=== PATIENT | male | born 1975 | race Caucasian/White ===

== ENCOUNTER 2016-08-19 09:52 | Outpatient (RCR) | payer MEDICAID ==
[~2016-08-19 09:52] MED LIST: ACET325T38 PO; CEFP200T2 PO; CYCL10TA45 PO; FLUT1DIS26 IH; INHALER; LEVO750T9 PO; METO-333 PO; NAPR220T66 PO; OXYC15TA79 PO; OXYC5CAP18 PO; PRD20T PO; RT-ALBUINH IH; SENN1TAB93 PO; SULF-222 PO; SULF1TAB35 PO; TIOT18CA2 IH; TRAM50TA2 PO
--- OUTSIDE RECORDS SUMMARY | 2016-08-19 09:55 | XMS REPORT | Continuity of Care Document ---
Author Author [facility] Organization [facility] Address Unknown Phone Unavailable Care Team Providers Care Door To Door Selling Agent Name Role Phone No Pcp, Na PCP Unavailable Source Comments Some departments are not documenting in the electronic medical record. If you do not see the information that you expected, contact Release of Information in the Health Information Management department at [phone] for further assistance in locating additional records.[facility] Active Allergies and Adverse Reactions No Known Allergies Current Medications Prescription Sig. Disp. Refills Start End Date Status Date albuterol (VENTOLIN HFA, Inhale 2 Puffs by mouth Active PROAIR HFA) 90 every 6 hours as needed mcg/actuation inhaler for Wheezing. fluticasone-vilanterol Inhale 1 Puff by mouth Active 200-25 mcg/dose dsdv daily. acetaminophen (TYLENOL) Take 1.5-3 Tabs by mouth 30 Tab 1 02/01/20 Active 325 mg tablet every 6 hours as needed. 16 senna/docusate Take 1 Tab by mouth twice 90 Tab 0 02/01/20 Active (SENOKOT-S) 8.6/50 mg daily. 16 tablet nicotine (NICODERM CQ Apply 1 Patch to top of 28 Patch 1 02/01/20 Active STEP 1) 21 mg/day patch skin as directed daily. 16 oxyCODONE (ROXICODONE) 5 Take 1-3 Tabs by mouth 75 Tab 0 02/24/20 Active mg tablet every 3 hours as needed 16 for Pain Earliest Fill Date: 02/24/16 metoprolol (LOPRESSOR) 25 Take 0.5 Tabs by mouth 30 Tab 3 02/24/20 Active mg tablet twice daily. 16 milk of magnesia (CONC) Take 10 mL by mouth daily 02/24/20 Active 2,400 mg/10 mL oral as needed (constipation). 16 suspension tiotropium (SPIRIVA) 18 Inhale 1 Cap by mouth 30 Cap 0 02/24/20 Active mcg capsule for inhaler daily. 16 fluticasone/salmeterol Inhale 1 Puff by mouth 3 Inhaler 0 02/24/20 Active (ADVAIR DISKUS) 250/50 twice daily. 16 mcg inhalation disk Active Problems Problem Noted Date Malignant thymoma ([facility]) 02/28/2016 Tobacco abuse 02/22/2016 Thymoma 02/01/2016 Mediastinal mass 01/24/2016 COPD (chronic obstructive pulmonary disease) ([facility]) Social History Tobacco Use Types Packs/Day Years Used Date Current Every Day Smoker Cigarettes 1.5 33 Last Filed Vital Signs Vital Sign Reading Time Taken Blood Pressure 132/75 02/24/2016 7:50 AM CDT Pulse 103 02/24/2016 9:50 AM CDT Temperature 37 C (98.6 F) 02/24/2016 7:50 AM CDT Respiratory Rate - - Height 1.854 m (6' 1") 02/20/2016 7:17 AM CDT Weight 99.8 kg (220 lb 0.3 oz) 02/24/2016 3:05 AM CDT Body Mass Index 29.03 02/24/2016 3:05 AM CDT Oxygen Saturation 94% 02/24/2016 9:50 AM CDT Plan of Care Health Maintenance Due Date Last Done Comments Physical (Comprehensive) 1980 Exam Pertussis Vaccine 1984 Tetanus Vaccine 1990 Influenza Vaccine 05/29/2016 Results from Last 3 Months Not on file
[2016-08-19 10:20] LABS: BASOPHILS % (AUTO) 0 % (0-10); EOSINOPHILS # (AUTO) 0.4 10^3/uL (0.0-0.3); EOSINOPHILS % (AUTO) 4 % (0-10); LYMPHOCYTES # (AUTO) 3.4 X 10^3 (1.0-4.0); LYMPHOCYTES % (AUTO) 33 % (12-44); MEAN CORPUSCULAR HEMOGLOBIN 30 PG (25-34); MEAN CORPUSCULAR HGB CONC 33 G/DL (32-36); MEAN CORPUSCULAR VOLUME 89 FL (80-99); MONOCYTES # (AUTO) 0.7 X 10^3 (0.0-1.0); MONOCYTES % (AUTO) 7 % (0-12); NEUTROPHILS # (AUTO) 5.7 X 10^3 (1.8-7.8); NEUTROPHILS % (AUTO) 56 % (42-75); PLATELET COUNT 101 10^3/uL (130-400); RED BLOOD COUNT 5.26 10^6/uL (4.35-5.85); RED CELL DISTRIBUTION WIDTH 13.6 % (10.0-14.5); WHITE BLOOD COUNT 10.2 10^3/uL (4.3-11.0)
[2016-08-19 10:45] LABS: ALANINE AMINOTRANSFERASE 70 U/L (0-55); ALBUMIN 4.1 G/DL (3.2-4.5); ANION GAP 9 MMOL/L (5-14); ASPARTATE AMINO TRANSFERASE 44 U/L (5-34); BILIRUBIN,TOTAL 0.3 MG/DL (0.1-1.0); BLOOD UREA NITROGEN 9 MG/DL (7-18); BUN/CREATININE RATIO 10; CALCIUM 9.2 MG/DL (8.5-10.1); CARBON DIOXIDE 25 MMOL/L (21-32); CHLORIDE 103 MMOL/L (98-107); CREATININE SERUM 0.92 MG/DL (0.60-1.30); GFR ESTIMATED > 60; GLUCOSE 162 MG/DL (70-105); LACTATE DEHYDROGENASE 204 U/L (125-220); POTASSIUM 3.7 MMOL/L (3.6-5.0); SODIUM 137 MMOL/L (135-145); TOTAL PROTEIN 6.6 G/DL (6.4-8.2)
== END 2016-11-17 | disposition home or self-care (01) ==
LOC: ONC 09:52
PROVIDERS: ATTEND Internal Medicine Hematology & Oncology
DX: C37 Malignant neoplasm of thymus (principal); J44.9 Chronic obstructive pulmonary disease, unspecified; F17.210 Nicotine dependence, cigarettes, uncomplicated
CPT/HCPCS: 36415; 80053; 83615; 85025; 99213

== ENCOUNTER 2016-11-17 13:13 | Outpatient (RCR) | payer MEDICAID ==
--- OUTSIDE RECORDS SUMMARY | 2016-11-17 13:21 | XMS REPORT | Continuity of Care Document ---
Author Author [facility] Organization [facility] Address Unknown Phone Unavailable Care Team Providers Care Finance Intern Name Role Phone No Pcp, Na PCP Unavailable Source Comments Some departments are not documenting in the electronic medical record. If you do not see the information that you expected, contact Release of Information in the Health Information Management department at [phone] for further assistance in locating additional records.[facility] Active Allergies and Adverse Reactions No Known [...] Active Problems Problem Noted Date Malignant thymoma ([facility]) 02/28/2016 Tobacco abuse 02/22/2016 Thymoma 02/01/2016 Mediastinal mass 01/24/2016 COPD (chronic obstructive pulmonary disease) ([facility]) Social History Tobacco Use Types Packs/Day Years [...]
[2016-11-17 14:11] LABS: BASOPHILS # (AUTO) 0.1 10^3/uL (0.0-0.1); BASOPHILS % (AUTO) 1 % (0-10); EOSINOPHILS # (AUTO) 0.2 10^3/uL (0.0-0.3); EOSINOPHILS % (AUTO) 2 % (0-10); LYMPHOCYTES # (AUTO) 3.2 X 10^3 (1.0-4.0); LYMPHOCYTES % (AUTO) 30 % (12-44); MEAN CORPUSCULAR HEMOGLOBIN 30 PG (25-34); MEAN CORPUSCULAR HGB CONC 33 G/DL (32-36); MEAN CORPUSCULAR VOLUME 89 FL (80-99); MONOCYTES # (AUTO) 0.8 X 10^3 (0.0-1.0); MONOCYTES % (AUTO) 8 % (0-12); NEUTROPHILS # (AUTO) 6.3 X 10^3 (1.8-7.8); NEUTROPHILS % (AUTO) 59 % (42-75); PLATELET COUNT 115 10^3/uL (130-400); RED BLOOD COUNT 5.46 10^6/uL (4.35-5.85); RED CELL DISTRIBUTION WIDTH 13.6 % (10.0-14.5); WHITE BLOOD COUNT 10.6 10^3/uL (4.3-11.0)
[2016-11-17 14:33] LABS: ALANINE AMINOTRANSFERASE 80 U/L (0-55); ALBUMIN 4.3 G/DL (3.2-4.5); ANION GAP 12 MMOL/L (5-14); ASPARTATE AMINO TRANSFERASE 49 U/L (5-34); BILIRUBIN,TOTAL 0.5 MG/DL (0.1-1.0); BLOOD UREA NITROGEN 8 MG/DL (7-18); BUN/CREATININE RATIO 9; CALCIUM 9.1 MG/DL (8.5-10.1); CARBON DIOXIDE 22 MMOL/L (21-32); CHLORIDE 102 MMOL/L (98-107); CREATININE SERUM 0.93 MG/DL (0.60-1.30); GFR ESTIMATED > 60; GLUCOSE 128 MG/DL (70-105); LACTATE DEHYDROGENASE 193 U/L (125-220); POTASSIUM 4.2 MMOL/L (3.6-5.0); SODIUM 136 MMOL/L (135-145); TOTAL PROTEIN 7.1 G/DL (6.4-8.2)
== END 2017-02-15 | disposition home or self-care (01) ==
LOC: ONC 13:13
PROVIDERS: ATTEND Internal Medicine Hematology & Oncology
DX: C37 Malignant neoplasm of thymus (principal); J44.9 Chronic obstructive pulmonary disease, unspecified; F17.210 Nicotine dependence, cigarettes, uncomplicated
CPT/HCPCS: 36415; 80053; 83615; 85025; 99213

== ENCOUNTER → 2017-02-10 | Outpatient (CLI) | payer MEDICAID ==
[~2017-02-10] MED LIST changes: +CATHETER FLUSH 10 ML SYR IV PRN; +IOHEXOL 350 MG/ML 100 ML (OMNIPAQUE 350) VIAL IV ONE; +NS 100 ML (IVPB) BAG IV ONE
--- NOTE | 2017-02-10 11:02 | Diagnostic Imaging Report ---
PROCEDURE: CT chest with contrast only. TECHNIQUE: Multiple contiguous axial images were obtained through the chest after administration of intravenous contrast. INDICATION: Shortness of breath. There are emphysematous changes in the lungs. There are no infiltrates, effusions, or pneumothoraces. There is no hilar or mediastinal lymphadenopathy. Thyroid appears normal. There is some coronary atherosclerosis. There is hepatic steatosis. IMPRESSION: Coronary atherosclerosis. Hepatic steatosis. Dictated by: Dictated on workstation # [id number]
== END ==
LOC: RAD 10:14
PROVIDERS: ATTEND Internal Medicine Hematology & Oncology
DX: I25.10 Atherosclerotic heart disease of native coronary artery without angina pectoris (principal); K76.0 Fatty (change of) liver, not elsewhere classified; R91.8 Other nonspecific abnormal finding of lung field
CPT/HCPCS: 71260

== ENCOUNTER 2017-02-16 12:43 | Outpatient (RCR) | payer MEDICAID ==
[~2017-02-16 12:43] MED LIST changes: -CATHETER FLUSH 10 ML SYR IV PRN; -IOHEXOL 350 MG/ML 100 ML (OMNIPAQUE 350) VIAL IV ONE; -NS 100 ML (IVPB) BAG IV ONE
[2017-02-16 13:30] LABS: BASOPHILS # (AUTO) 0.1 10^3/uL (0.0-0.1); BASOPHILS % (AUTO) 1 % (0-10); EOSINOPHILS # (AUTO) 0.3 10^3/uL (0.0-0.3); EOSINOPHILS % (AUTO) 3 % (0-10); LYMPHOCYTES # (AUTO) 2.8 X 10^3 (1.0-4.0); LYMPHOCYTES % (AUTO) 26 % (12-44); MEAN CORPUSCULAR HEMOGLOBIN 30 PG (25-34); MEAN CORPUSCULAR HGB CONC 32 G/DL (32-36); MEAN CORPUSCULAR VOLUME 91 FL (80-99); MONOCYTES # (AUTO) 0.7 X 10^3 (0.0-1.0); MONOCYTES % (AUTO) 6 % (0-12); NEUTROPHILS # (AUTO) 6.9 X 10^3 (1.8-7.8); NEUTROPHILS % (AUTO) 64 % (42-75); PLATELET COUNT 99 10^3/uL (130-400); RED BLOOD COUNT 5.52 10^6/uL (4.35-5.85); RED CELL DISTRIBUTION WIDTH 13.4 % (10.0-14.5); WHITE BLOOD COUNT 10.8 10^3/uL (4.3-11.0)
[2017-02-16 13:52] LABS: ALANINE AMINOTRANSFERASE 75 U/L (0-55); ALBUMIN 4.1 G/DL (3.2-4.5); ANION GAP 9 MMOL/L (5-14); ASPARTATE AMINO TRANSFERASE 45 U/L (5-34); BILIRUBIN,TOTAL 0.4 MG/DL (0.1-1.0); BLOOD UREA NITROGEN 10 MG/DL (7-18); BUN/CREATININE RATIO 10; CALCIUM 9.5 MG/DL (8.5-10.1); CARBON DIOXIDE 29 MMOL/L (21-32); CHLORIDE 100 MMOL/L (98-107); CREATININE SERUM 0.97 MG/DL (0.60-1.30); GFR ESTIMATED > 60; GLUCOSE 155 MG/DL (70-105); LACTATE DEHYDROGENASE 223 U/L (125-220); POTASSIUM 4.5 MMOL/L (3.6-5.0); SODIUM 138 MMOL/L (135-145)
[2017-08-18] MEDS ORDERED: ASPI-999 PO (07:27)
[2017-08-18] MEDS ORDERED: PANT40TA3 PO (07:27)
[2017-08-18] MEDS ORDERED: LISI10TA2 PO (07:27)
[2017-08-19] MEDS ORDERED: CLOP75TA28 PO (09:36)
[2017-08-19] MEDS ORDERED: METO-387 PO (09:36)
[2017-08-19] MEDS ORDERED: ATOR40TA PO (09:36)
[2017-08-19] MEDS ORDERED: METF-478 PO (09:59)
== END 2017-05-17 | disposition home or self-care (01) ==
LOC: ONC 12:43
PROVIDERS: ATTEND Internal Medicine Hematology & Oncology
DX: C37 Malignant neoplasm of thymus (principal); J44.9 Chronic obstructive pulmonary disease, unspecified; F17.210 Nicotine dependence, cigarettes, uncomplicated
CPT/HCPCS: 36415; 80053; 83615; 85025; 99213

== ENCOUNTER → 2017-04-10 | Outpatient (CLI) | payer MEDICAID ==
--- NOTE | 2017-04-10 09:05 | Diagnostic Imaging Report ---
PROCEDURE: US abdomen complete. TECHNIQUE: Multiple real-time grayscale images were obtained over the abdomen in various projections. INDICATION: Abdominal pain. FINDINGS: The pancreas is largely obscured by bowel gas. The liver is hyperechoic and attenuates the ultrasound beam suggestive of fatty infiltration or hepatitis. There is also enlargement of the liver with craniocaudal diagonal dimension of 20.1 cm. The CBD is obscured by colon gas. The spleen is 15.0 x 5.5 x 6.3 cm, borderline enlarged. The gallbladder demonstrates no stones or wall thickening. No pericholecystic fluid. Sonographic Carrasco sign is reportedly negative. The right kidney is some 11.3 cm, and the left kidney is 12.7 cm in length. No hydronephrosis or focal lesion. There is no fluid collection or ascites in the abdomen or pelvis. The IVC and abdominal aorta are obscured by bowel gas. IMPRESSION: 1. The liver is mildly enlarged with parenchymal echogenicity may relate to fatty infiltration or hepatitis. 2. Borderline splenomegaly. Dictated by: Dictated on workstation # [id number]
== END ==
LOC: RAD 07:47
PROVIDERS: ATTEND Nurse Practitioner Family
DX: R10.11 Right upper quadrant pain (principal)
CPT/HCPCS: 76700

== ENCOUNTER → 2017-07-15 | Outpatient (CLI) | payer MEDICAID ==
[~2017-07-15] MED LIST changes: +IOHEXOL 350 MG/ML 100 ML (OMNIPAQUE 350) VIAL IV ONE; +NS 100 ML (IVPB) BAG IV ONE
--- NOTE | 2017-07-15 10:01 | Diagnostic Imaging Report ---
PROCEDURE: CT abdomen and pelvis with and without contrast. TECHNIQUE: Precontrast acquisitions were acquired through the abdomen and pelvis. Multiple contiguous axial images were obtained through the abdomen and pelvis after the administration of intravenous contrast. INDICATION: Abdominal pain. 100 mL of Omnipaque 350 is administered intravenously. FINDINGS: The lung bases appear clear. The liver demonstrate diffuse hepatic steatosis. The spleen is not enlarged. The pancreas, the gallbladder, and the adrenal glands appear unremarkable. The kidneys have symmetric enhancement and excretion. There is no hydronephrosis. No urinary tract stones. The abdominal aorta is 2.9 cm in caliber. No para-aortic significantly enlarged lymph nodes are seen. There is no significant free fluid or fluid collection in the abdomen or pelvis. The appendix appears normal. No bowel obstruction. There is fluid-attenuation oval lesion in the subcutaneous tissues in the right buttocks area measuring 5.5 x 2.9 x 4.3 cm, presumably related to a sebaceous cyst. The osseous structures appear grossly unremarkable. IMPRESSION: 1. Diffuse marked degree of hepatic steatosis. 2. Infrarenal abdominal aortic aneurysm measuring 2.9 cm in caliber. Dictated by: Dictated on workstation # [id number]
== END ==
LOC: RAD 08:18
PROVIDERS: ATTEND Nurse Practitioner Family
DX: I71.4 Abdominal aortic aneurysm, without rupture (principal); K76.0 Fatty (change of) liver, not elsewhere classified
CPT/HCPCS: 74178

== ENCOUNTER → 2017-07-28 | Outpatient (CLI) | payer MEDICAID ==
[~2017-07-28] MED LIST changes: +CATHETER FLUSH 10 ML SYR IV PRN; -IOHEXOL 350 MG/ML 100 ML (OMNIPAQUE 350) VIAL IV ONE; -NS 100 ML (IVPB) BAG IV ONE; +REGADENOSON 0.4 MG/5 ML SYR (LEXISCAN) IV ONE
[2017-07-28 08:54] VITALS: BP 132/94
--- NOTE | 2017-07-29 03:08 | STRESS TEST ---
DATE OF SERVICE: 07/28/2017 RESTING AND POST REGADENOSON TECHNETIUM 99M TETROFOSMIN SPECT CT IMAGING ORDERING PHYSICIAN: Dr. Calhoun. PRIMARY PHYSICIAN: Dr. Yoder. OTHER PHYSICIAN: FANG Acevedo CLINICAL DIAGNOSIS: Chest discomfort. Baseline images were carried out after injection of 10.72 mCi of technetium-99 tetrofosmin. This was followed by 0.4 mg of regadenoson and 30.3 mCi of technetium-99 tetrofosmin for stress imaging. The electrocardiogram showed sinus rhythm and did not change significantly with the regadenoson infusion. The patient tolerated the procedure well. Review of images at rest and following stress indicates a [id number] inferolateral perfusion defect that is transient. Gated images show normal global left ventricular systolic function with normal regional wall motion. Left ventricular ejection fraction is calculated to be 77%. Left ventricular end diastolic volume is 49 mL. TID is absent (0.97). CONCLUSION: 1. The study is indicative of a [id number] amount of inferolateral ischemia. 2. No regional wall motion abnormalities. 3. Normal global left ventricular systolic function with a calculated ejection fraction of 77%. Job ID: [id number] DocumentID: [id number] Dictated Date: 07/28/2017 14:20:23 Kick Press Setter Date: 07/29/2017 00:24:22 Dictated By: ESTIVEN CALHOUN MD, MA, FACP, FACC,
== END ==
LOC: CARD 07:08
PROVIDERS: ATTEND Internal Medicine Cardiovascular Disease
DX: R07.89 Other chest pain (principal); R06.02 Shortness of breath; D15.0 Benign neoplasm of thymus; I71.4 Abdominal aortic aneurysm, without rupture; I73.9 Peripheral vascular disease, unspecified; E66.09 Other obesity due to excess calories; J43.8 Other emphysema; Z72.0 Tobacco use
CPT/HCPCS: 78452; 93017

== ENCOUNTER 2017-08-31 09:45 | Outpatient (RCR) | payer MEDICAID ==
[~2017-08-31 09:45] MED LIST changes: +ASPI-999 PO; +ATOR40TA PO; -CATHETER FLUSH 10 ML SYR IV PRN; +CLOP75TA28 PO; +LISI10TA2 PO; +METF-478 PO; +METO-387 PO; +PANT40TA3 PO; -REGADENOSON 0.4 MG/5 ML SYR (LEXISCAN) IV ONE
[2017-08-31 10:30] LABS: BASOPHILS # (AUTO) 0.1 10^3/uL (0.0-0.1); BASOPHILS % (AUTO) 1 % (0-10); EOSINOPHILS # (AUTO) 0.3 10^3/uL (0.0-0.3); EOSINOPHILS % (AUTO) 3 % (0-10); HEMATOCRIT 46 % (40-54); HEMOGLOBIN 15.6 G/DL (13.3-17.7); LYMPHOCYTES # (AUTO) 2.3 X 10^3 (1.0-4.0); LYMPHOCYTES % (AUTO) 23 % (12-44); MEAN CORPUSCULAR HEMOGLOBIN 30 PG (25-34); MEAN CORPUSCULAR HGB CONC 34 G/DL (32-36); MEAN CORPUSCULAR VOLUME 89 FL (80-99); MONOCYTES # (AUTO) 0.6 X 10^3 (0.0-1.0); MONOCYTES % (AUTO) 6 % (0-12); NEUTROPHILS # (AUTO) 6.9 X 10^3 (1.8-7.8); NEUTROPHILS % (AUTO) 68 % (42-75); PLATELET COUNT 134 10^3/uL (130-400); RED BLOOD COUNT 5.22 10^6/uL (4.35-5.85); RED CELL DISTRIBUTION WIDTH 12.7 % (10.0-14.5); WHITE BLOOD COUNT 10.1 10^3/uL (4.3-11.0)
[2017-08-31 10:47] LABS: ALANINE AMINOTRANSFERASE 80 U/L (0-55); ALBUMIN 4.2 GM/DL (3.2-4.5); ALKALINE PHOSPHATASE 125 U/L (40-136); BILIRUBIN,TOTAL 0.6 MG/DL (0.1-1.0); BUN/CREATININE RATIO 8; CALCIUM 9.3 MG/DL (8.5-10.1); CARBON DIOXIDE 25 MMOL/L (21-32); CHLORIDE 99 MMOL/L (98-107); CREATININE SERUM 0.89 MG/DL (0.60-1.30); GFR ESTIMATED > 60; GLUCOSE 226 MG/DL (70-105); POTASSIUM 4.3 MMOL/L (3.6-5.0); SODIUM 134 MMOL/L (135-145); TOTAL PROTEIN 7.5 GM/DL (6.4-8.2)
[2017-09-11] MEDS ORDERED: METF500T4 PO (14:22)
[2017-09-11] MEDS ORDERED: CLOP75TA28 PO (14:22)
[2017-09-11] MEDS ORDERED: ATOR40TA70 PO (14:22)
[2017-09-11] MEDS ORDERED: ASPI325T32 PO (14:22)
== END 2017-11-29 | disposition home or self-care (01) ==
LOC: ONC 09:45
PROVIDERS: ATTEND Internal Medicine Hematology & Oncology
DX: C37 Malignant neoplasm of thymus (principal); J44.9 Chronic obstructive pulmonary disease, unspecified; F17.210 Nicotine dependence, cigarettes, uncomplicated; I25.10 Atherosclerotic heart disease of native coronary artery without angina pectoris; K76.0 Fatty (change of) liver, not elsewhere classified; R91.8 Other nonspecific abnormal finding of lung field; Z79.899 Other long term (current) drug therapy
CPT/HCPCS: 36415; 80053; 83615; 85025; 99213

== ENCOUNTER 2017-09-11 14:00 | Outpatient (CLI) | payer MEDICAID ==
[~2017-09-11] VITALS: Ht 185.4 cm; Wt 107.0 kg
[2017-09-11] MEDS ORDERED: ATOR40TA70 PO (14:22)
[2017-09-11] MEDS ORDERED: METF500T4 PO (14:22)
[2017-09-11] MEDS ORDERED: ASPI325T32 PO (14:22)
[2017-09-11] MEDS ORDERED: CLOP75TA28 PO (14:22)
== END 2017-09-11 14:26 ==
LOC: PREOP 14:00
PROVIDERS: ATTEND Surgery
DX: Z01.818 Encounter for other preprocedural examination (principal); K62.5 Hemorrhage of anus and rectum

== ENCOUNTER → 2017-09-17 | Day surgery (SDC) | payer MEDICAID ==
[~2017-09-17] VITALS: Ht 185.4 cm; Wt 107.0 kg
[~2017-09-17] MED LIST changes: +ASPI325T32 PO; +ATOR40TA70 PO; +METF500T4 PO; +MIDAZOLAM 2 MG/2 ML (VERSED) VIAL ONE; +NS IV 500 ML 500 ML IV PRN; +NS IV 500 ML 500 ML ONE; +fentaNYL INJECTION 100 MCG/2 ML AMP ONE
[2017-09-17 08:37] VITALS: BP 105/82
[2017-09-17] MEDS: MIDAZOLAM 2 MG/2 ML (VERSED) VIAL IVP PRN ×4 (10:19→10:31)
[2017-09-17] MEDS: fentaNYL INJECTION 100 MCG/2 ML AMP IVP PRN ×2 (10:20→10:25)
--- NOTE | 2017-09-17 10:21 | Conscious Sedation/ASA ---
Conscious Sedation Pre-Proced Time Reviewed: 10:21 ASA Class: 2 Airway Mallampati Classification: ([place] appropriate class) I. II. III, IV Lungs Heart ASA score ASA 1: a normal healthy patient ASA 2: a patient with a mild systemic disease (mid diabetes, controlled hypertension, obesity ASA 3: a patient with a severe systemic disease that limits activity (angina , COPD, prior Myocardial infarction) ASA 4: a patient with an incapacitating disease that is a constant threat to life (CHF, renal failure) ASA 5: a moribund patient not expected to survive 24 hrs. (ruptured aneurysm) ASA 6: a declared brain patient whose organs are being harvested. For emergent operations, add the letter E after the classification Grade 2 Sedation Plan: Discussed options with patient/fam Note The patient is an appropriate candidate to undergo the planned procedure, sedation, and anesthesia. The patient immediately re-assessed prior to indication. ISAK HENDRIX MD Sep 17, 2017 10:21 am
[2017-09-17 10:30] VITALS: BP 122/89
--- OUTSIDE RECORDS SUMMARY | 2017-09-17 10:45 | XMS REPORT | Clinical Summary ---
Author Author [facility] Organization [facility] Address Unknown Phone Unavailable Care Team Providers Care Sales Ambassador Name Role Phone PCP Unavailable Source Comments Some departments are not documenting in the electronic medical record. If you do not see the information that you expected, contact Release of Information in the Health Information Management department at [phone] for further assistance in locating additional records.[facility] Allergies No Known Allergies Current Medications Prescription Sig. [...] Active Problems Problem Noted Date Malignant thymoma ([facility]) 02/28/2016 Tobacco abuse 02/22/2016 Thymoma 02/01/2016 Mediastinal mass 01/24/2016 COPD (chronic obstructive pulmonary disease) ([facility]) Family History Medical History Relation Name Comments Heart Disease Father Hypertension Father Heart Disease Maternal Grandfather Diabetes Mother Cancer Paternal Grandfather Hypertension Paternal Grandfather Cancer Paternal Grandmother Relation Name Status Comments Father Maternal Grandfather Mother Paternal Grandfather Paternal Grandmother Social History Tobacco Use Types Packs/Day Years Used Date Current Every Day Smoker Cigarettes 1.5 33 Sex Assigned at Date Recorded Not on file Last Filed Vital Signs Vital Sign Reading Time Taken Blood Pressure 132/75 02/24/2016 7:50 AM CDT Pulse 103 02/24/2016 9:50 AM CDT Temperature 37 C (98.6 F) 02/24/2016 7:50 AM CDT Respiratory Rate - - Oxygen Saturation 94% 02/24/2016 9:50 AM CDT Inhaled Oxygen - - Concentration Weight 99.8 kg (220 lb 0.3 oz) 02/24/2016 3:05 AM CDT Height 185.4 cm (6' 1") 02/20/2016 7:17 AM CDT Body Mass Index 29.03 02/24/2016 3:05 AM CDT Plan of Treatment Health Maintenance Due Date Last Done Comments PHYSICAL (COMPREHENSIVE) 1980 EXAM PERTUSSIS VACCINE 1984 TETANUS VACCINE 1990 INFLUENZA VACCINE 04/28/2017 Results Not on filefrom Last 3 Months
--- OUTSIDE RECORDS SUMMARY | 2017-09-17 10:47 | XMS REPORT | Continuity of Care Document ---
Author Author [facility] Organization [facility] Address Unknown Phone Unavailable Allergies Active Description Code Type Severity Reaction Onset Reported/Identified Relationship to Patient Clinical Status Yes No Known Drug Allergies [id number] Drug Allergy Unknown N/A 12/27/2013 Medications There is no data. Problems Date Dx Coded Attending Type Code Diagnosis Diagnosed By 12/27/2013 VALE RUIZ Ot 719.45 JOINT PAIN-PELVIS 12/27/2013 VALE RUIZ Ot 843.9 SPRAIN HIP THIGH NOS 12/27/2013 VALE RUIZ Ot E000.8 OTHER EXTERNAL CAUSE STATUS 12/27/2013 VALE RUIZ Ot E013.0 ACTIVITIES INVOLVING PERSONAL BATHING AN 12/27/2013 VALE RUIZ Ot E849.0 ACCIDENT IN HOME 12/27/2013 VALE RUIZ Ot E927.0 OVEREXERTION FROM SUDDEN STRENUOUS MOVEM 12/13/2015 CARLOS DAVENPORT MD Ot F12.10 CANNABIS ABUSE, UNCOMPLICATED 12/13/2015 CARLOS DAVENPORT MD Ot F17.210 NICOTINE DEPENDENCE, CIGARETTES, UNCOMPL 12/13/2015 CARLOS DAVENPORT MD Ot J40 BRONCHITIS, NOT SPECIFIED ACUTE OR CH 12/13/2015 CARLOS DAVENPORT MD Ot J43.9 EMPHYSEMA, UNSPECIFIED 12/13/2015 CARLOS DAVENPORT MD Ot K76.0 FATTY (CHANGE OF) LIVER, NOT ELSEWHERE C 12/13/2015 CARLOS DAVENPORT MD Ot R22.2 LOCALIZED SWELLING, MASS AND LUMP, TRUNK 12/14/2015 CARLOS DAVENPORT MD Ot F12.10 12/14/2015 CARLOS DAVENPORT MD Ot F17.210 12/14/2015 CARLOS DAVENPORT MD Ot J40 12/14/2015 CARLOS DAVENPORT MD, Ot J43.9 12/14/2015 CIRILO DAVENPORT MDOTHY D Ot K76.0 12/14/2015 ISSAC SHERIDAN, CARLOS D Ot R22.2 12/19/2015 ISSAC SHERIDAN, CARLOS D Ot F12.10 12/19/2015 ISSAC SHERIDAN, CARLOS D Ot F17.210 12/19/2015 ISSAC SHERIDAN, CARLOS D Ot J40 12/19/2015 ISSAC SHERIDAN, CARLOS D Ot J43.9 12/19/2015 ISSAC SHERIDAN, CARLOS D Ot K76.0 12/19/2015 ISSAC SHERIDAN, CARLOS D Ot R22.2 01/01/2016 Ot R22.2 01/01/2016 Ot R22.2 01/02/2016 Ot R22.2 01/06/2016 Ot R22.2 01/21/2016 LONNY GILBERT DO Ot J43.9 EMPHYSEMA, UNSPECIFIED 01/21/2016 LONNY GILBERT DO Ot R91.8 OTHER NONSPECIFIC ABNORMAL FINDING OF IVORY 01/21/2016 LONNY GILBERT DO Ot Z72.0 TOBACCO USE 02/11/2016 MADL, IGOR L MANAGER INTERNET Ot R22.2 LOCALIZED SWELLING, MASS AND LUMP, TRUNK 02/11/2016 MADL, IGOR L MANAGER INTERNET Ot Z53.9 PROCEDURE AND TREATMENT NOT CARRIED OUT, 02/11/2016 Ot R22.2 LOCALIZED SWELLING, MASS AND LUMP, TRUNK 02/11/2016 LONNY GILBERT DO Ot J43.8 OTHER EMPHYSEMA 02/11/2016 LONNY GILBERT DO Ot R91.8 OTHER NONSPECIFIC ABNORMAL FINDING OF IVORY 02/11/2016 LONNY GILBERT DO Ot Z72.0 TOBACCO USE 02/11/2016 LONNY GILBERT DO Ot J43.9 EMPHYSEMA, UNSPECIFIED 02/11/2016 LONNY GILBERT DO Ot R91.8 OTHER NONSPECIFIC ABNORMAL FINDING OF IVORY 02/11/2016 LONNY GILBERT DO Ot Z72.0 TOBACCO USE 02/12/2016 LONNY GILBERT DO Ot J43.9 EMPHYSEMA, UNSPECIFIED 02/12/2016 LONNY GILBERT DO Ot R91.8 OTHER NONSPECIFIC ABNORMAL FINDING OF IVORY 02/25/2016 ROVERTOL, IGOR L MANAGER INTERNET Ot R22.2 LOCALIZED SWELLING, MASS AND LUMP, TRUNK 02/25/2016 MADLDIPIKAA L MANAGER INTERNET Ot Z53.9 PROCEDURE AND TREATMENT NOT CARRIED OUT, 02/25/2016 Ot R22.2 LOCALIZED SWELLING, MASS AND LUMP, TRUNK 02/25/2016 LONNY GILBERT DO Ot J43.8 OTHER EMPHYSEMA 02/25/2016 LONNY GILBERT DO Ot R91.8 OTHER NONSPECIFIC ABNORMAL FINDING OF IVORY 02/25/2016 LONNY GILBERT DO Ot Z72.0 TOBACCO USE 02/25/2016 LONNY GILBERT DO Ot J43.9 EMPHYSEMA, UNSPECIFIED 02/25/2016 LONNY GILBERT DO Ot R91.8 OTHER NONSPECIFIC ABNORMAL FINDING OF IVORY 02/25/2016 LONNY GILBERT DO Ot Z72.0 TOBACCO USE 02/25/2016 LONNY GILBERT DO Ot J43.9 EMPHYSEMA, UNSPECIFIED 02/25/2016 LONNY GILBERT DO Ot R91.8 OTHER NONSPECIFIC ABNORMAL FINDING OF IVORY 02/26/2016 MADLDIPIKAA L MANAGER INTERNET Ot R22.2 LOCALIZED SWELLING, MASS AND LUMP, TRUNK 02/26/2016 MADLDIPIKAA L MANAGER INTERNET Ot Z53.9 PROCEDURE AND TREATMENT NOT CARRIED OUT, 02/26/2016 Ot R22.2 LOCALIZED SWELLING, MASS AND LUMP, TRUNK 02/26/2016 LONNY GILBERT DO Ot J43.8 OTHER EMPHYSEMA 02/26/2016 LONNY GILBERT DO Ot R91.8 OTHER NONSPECIFIC ABNORMAL FINDING OF IVORY 02/26/2016 LONNY GILBERT DO Ot Z72.0 TOBACCO USE 02/26/2016 LONNY GILBERT DO Ot J43.9 EMPHYSEMA, UNSPECIFIED 02/26/2016 LONNY GILBERT DO Ot R91.8 OTHER NONSPECIFIC ABNORMAL FINDING OF IVORY 02/26/2016 LONNY GILBERT DO Ot Z72.0 TOBACCO USE 02/26/2016 LONNY GILBERT DO Ot J43.9 EMPHYSEMA, UNSPECIFIED 02/26/2016 LONNY GILBERT DO Ot R91.8 OTHER NONSPECIFIC ABNORMAL FINDING OF IVORY 02/26/2016 LONNY GILBERT DO Ot J43.9 EMPHYSEMA, UNSPECIFIED 02/26/2016 LONNY GILBERT DO Ot R91.8 OTHER NONSPECIFIC ABNORMAL FINDING OF IVORY 02/26/2016 LONNY GILBERT DO Ot Z72.0 TOBACCO USE 02/26/2016 LONNY GILBERT DO Ot J43.9 EMPHYSEMA, UNSPECIFIED 02/26/2016 LONNY GILBERT DO Ot R91.8 OTHER NONSPECIFIC ABNORMAL FINDING OF IVORY 02/26/2016 Ot R22.2 LOCALIZED SWELLING, MASS AND LUMP, TRUNK 02/26/2016 LONNY GILBERT DO Ot J43.8 OTHER EMPHYSEMA 02/26/2016 LONNY GILBERT DO Ot R91.8 OTHER NONSPECIFIC ABNORMAL FINDING OF IVORY 02/26/2016 LONNY GILBERT DO Ot Z72.0 TOBACCO USE 02/26/2016 LONNY GILBERT DO Ot J43.9 EMPHYSEMA, UNSPECIFIED 02/26/2016 LONNY GILBERT DO Ot R91.8 OTHER NONSPECIFIC ABNORMAL FINDING OF IVORY 02/26/2016 LONNY GILBERT DO Ot Z72.0 TOBACCO USE 02/26/2016 MADL, IGOR L MANAGER INTERNET Ot R22.2 LOCALIZED SWELLING, MASS AND LUMP, TRUNK 02/26/2016 MADL, IGOR L MANAGER INTERNET Ot Z53.9 PROCEDURE AND TREATMENT NOT CARRIED OUT, 02/26/2016 MADL, GIOR L MANAGER INTERNET Ot R22.2 LOCALIZED SWELLING, MASS AND LUMP, TRUNK 02/26/2016 MADL, IGOR L MANAGER INTERNET Ot Z53.9 PROCEDURE AND TREATMENT NOT CARRIED OUT, 02/26/2016 Ot R22.2 LOCALIZED SWELLING, MASS AND LUMP, TRUNK 02/26/2016 LONNY GILBERT DO Ot J43.8 OTHER EMPHYSEMA 02/26/2016 LONNY GILBERT DO Ot R91.8 OTHER NONSPECIFIC ABNORMAL FINDING OF IVORY 02/26/2016 LONNY GILBERT DO Ot Z72.0 TOBACCO USE 02/26/2016 LONNY GILBERT DO Ot J43.9 EMPHYSEMA, UNSPECIFIED 02/26/2016 LONNY GILBERT DO Ot R91.8 OTHER NONSPECIFIC ABNORMAL FINDING OF IVORY 02/26/2016 LONNY GILBERT DO Ot Z72.0 TOBACCO USE 02/26/2016 LONNY GILBERT DO Ot J43.9 EMPHYSEMA, UNSPECIFIED 02/26/2016 LONNY GILBERT DO Ot R91.8 OTHER NONSPECIFIC ABNORMAL FINDING OF IVORY 02/26/2016 LONNY GILBERT DO Ot J43.9 EMPHYSEMA, UNSPECIFIED 02/26/2016 LONNY GILBERT DO Ot R91.8 OTHER NONSPECIFIC ABNORMAL FINDING OF IVORY 02/26/2016 LONNY GILBERT DO Ot Z72.0 TOBACCO USE 02/26/2016 LONNY GILBERT DO Ot J43.9 EMPHYSEMA, UNSPECIFIED 02/26/2016 LONNY GILBERT DO Ot R91.8 OTHER NONSPECIFIC ABNORMAL FINDING OF IVORY 02/26/2016 Ot R22.2 LOCALIZED SWELLING, MASS AND LUMP, TRUNK 02/26/2016 LONNY GILBERT DO Ot J43.8 OTHER EMPHYSEMA 02/26/2016 LONNY GILBERT DO Ot R91.8 OTHER NONSPECIFIC ABNORMAL FINDING OF IVORY 02/26/2016 LONNY GILBERT DO Ot Z72.0 TOBACCO USE 02/26/2016 MADL, IGOR L MANAGER INTERNET Ot R22.2 LOCALIZED SWELLING, MASS AND LUMP, TRUNK 02/26/2016 MADL IGOR L MANAGER INTERNET Ot Z53.9 PROCEDURE AND TREATMENT NOT CARRIED OUT, 02/27/2016 CY LOVE MD Ot B37.0 CANDIDAL STOMATITIS 02/27/2016 CY LOVE MD Ot F17.210 NICOTINE DEPENDENCE, CIGARETTES, UNCOMPL 02/27/2016 CY LOVE MD Ot J44.9 CHRONIC OBSTRUCTIVE PULMONARY DISEASE, U 02/27/2016 CY LOVE MD Ot J81.0 ACUTE PULMONARY EDEMA 02/27/2016 CY LOVE MD Ot J95.89 OT POSTPROC COMPLICATIONS AND DISORDERS 03/26/2016 MADL, IGOR L MANAGER INTERNET Ot R22.2 LOCALIZED SWELLING, MASS AND LUMP, TRUNK 03/26/2016 MADL, IGOR L MANAGER INTERNET Ot Z53.9 PROCEDURE AND TREATMENT NOT CARRIED OUT, 03/26/2016 Ot R22.2 LOCALIZED SWELLING, MASS AND LUMP, TRUNK 03/26/2016 LONNY GILBERT DO Ot J43.8 OTHER EMPHYSEMA 03/26/2016 LONNY GILBERT DO Ot R91.8 OTHER NONSPECIFIC ABNORMAL FINDING OF IVORY 03/26/2016 LONNY GILBERT DO Ot Z72.0 TOBACCO USE 03/26/2016 LONNY GILBERT DO Ot J43.9 EMPHYSEMA, UNSPECIFIED 03/26/2016 LONNY GILBERT DO Ot R91.8 OTHER NONSPECIFIC ABNORMAL FINDING OF IVORY 03/26/2016 LONNY GILBERT DO Ot Z72.0 TOBACCO USE 03/26/2016 LONNY GILBERT DO Ot J43.9 EMPHYSEMA, UNSPECIFIED 03/26/2016 LONNY GILBERT DO Ot R91.8 OTHER NONSPECIFIC ABNORMAL FINDING OF IVORY 03/27/2016 MADL, IGOR L MANAGER INTERNET Ot R22.2 LOCALIZED SWELLING, MASS AND LUMP, TRUNK 03/27/2016 MADL, IGOR L MANAGER INTERNET Ot Z53.9 PROCEDURE AND TREATMENT NOT CARRIED OUT, 03/27/2016 Ot R22.2 LOCALIZED SWELLING, MASS AND LUMP, TRUNK 03/27/2016 LONNY GILBERT DO Ot J43.8 OTHER EMPHYSEMA 03/27/2016 LONNY GILBERT DO Ot R91.8 OTHER NONSPECIFIC ABNORMAL FINDING OF IVORY 03/27/2016 LONNY GILBERT DO Ot Z72.0 TOBACCO USE 03/27/2016 LONNY GILBERT DO Ot J43.9 EMPHYSEMA, UNSPECIFIED 03/27/2016 LONNY GILBERT DO Ot R91.8 OTHER NONSPECIFIC ABNORMAL FINDING OF IVORY 03/27/2016 LONNY GILBERT DO Ot Z72.0 TOBACCO USE 03/27/2016 LONNY GILBERT DO Ot J43.9 EMPHYSEMA, UNSPECIFIED 03/27/2016 LONNY GILBERT DO Ot R91.8 OTHER NONSPECIFIC ABNORMAL FINDING OF IVORY 04/01/2016 LONNY GILBERT DO Ot J43.9 EMPHYSEMA, UNSPECIFIED 04/01/2016 LONNY GILBERT DO Ot R91.8 OTHER NONSPECIFIC ABNORMAL FINDING OF IVORY 04/01/2016 MADL, IGOR L MANAGER INTERNET Ot R22.2 LOCALIZED SWELLING, MASS AND LUMP, TRUNK 04/01/2016 MADL, IGOR L MANAGER INTERNET Ot Z53.9 PROCEDURE AND TREATMENT NOT CARRIED OUT, 04/01/2016 Ot R22.2 LOCALIZED SWELLING, MASS AND LUMP, TRUNK 04/01/2016 LONNY GILBERT DO Ot J43.8 OTHER EMPHYSEMA 04/01/2016 LONNY GILBERT DO Ot R91.8 OTHER NONSPECIFIC ABNORMAL FINDING OF IVORY 04/01/2016 LONNY GILBERT DO Ot Z72.0 TOBACCO USE 04/01/2016 LONNY GILBERT DO Ot J43.9 EMPHYSEMA, UNSPECIFIED 04/01/2016 LONNY GILBERT DO Ot R91.8 OTHER NONSPECIFIC ABNORMAL FINDING OF IVORY 04/01/2016 LONNY GILBERT DO Ot Z72.0 TOBACCO USE 04/01/2016 LONNY GILBERT DO Ot J43.9 EMPHYSEMA, UNSPECIFIED 04/01/2016 LONNY GILBERT DO Ot R91.8 OTHER NONSPECIFIC ABNORMAL FINDING OF IVORY 04/01/2016 LIA ROSE Ot C37 MALIGNANT NEOPLASM OF [place] 04/01/2016 LIA ROSE Ot F17.210 NICOTINE DEPENDENCE, CIGARETTES, UNCOMPL 04/01/2016 LIA ROSE Ot J44.9 CHRONIC OBSTRUCTIVE PULMONARY DISEASE, U 04/01/2016 LONNY GILBERT DO Ot J43.8 OTHER EMPHYSEMA 04/01/2016 LONNY GILBERT DO Ot R91.8 OTHER NONSPECIFIC ABNORMAL FINDING OF IVORY 04/01/2016 LONNY GILBERT DO Ot Z72.0 TOBACCO USE 04/01/2016 Ot R22.2 LOCALIZED SWELLING, MASS AND LUMP, TRUNK 04/01/2016 LONNY GILBERT DO Ot J43.8 OTHER EMPHYSEMA 04/01/2016 LONNY GILBERT DO Ot R91.8 OTHER NONSPECIFIC ABNORMAL FINDING OF IVORY 04/01/2016 LONNY GILBERT DO Ot Z72.0 TOBACCO USE 04/01/2016 MADL, IGOR L MANAGER INTERNET Ot R22.2 LOCALIZED SWELLING, MASS AND LUMP, TRUNK 04/01/2016 MADL, IGOR L MANAGER INTERNET Ot Z53.9 PROCEDURE AND TREATMENT NOT CARRIED OUT, 04/01/2016 Ot R22.2 LOCALIZED SWELLING, MASS AND LUMP, TRUNK 04/01/2016 MADL, IGOR L MANAGER INTERNET Ot R22.2 LOCALIZED SWELLING, MASS AND LUMP, TRUNK 04/01/2016 MADL, IGOR L MANAGER INTERNET Ot Z53.9 PROCEDURE AND TREATMENT NOT CARRIED OUT, 04/02/2016 LONNY GILBERT DO Ot J43.8 OTHER EMPHYSEMA 04/02/2016 LONNY GILBERT DO Ot R91.8 OTHER NONSPECIFIC ABNORMAL FINDING OF IVORY 04/02/2016 LONNY GILBERT DO Ot Z72.0 TOBACCO USE 04/14/2016 LONNY GILBERT DO Ot J43.9 EMPHYSEMA, UNSPECIFIED 04/14/2016 LONNY GILBERT DO Ot R91.8 OTHER NONSPECIFIC ABNORMAL FINDING OF IVORY 04/14/2016 ROSE LIA Lombardi Ot C37 MALIGNANT NEOPLASM OF [place] 04/14/2016 ROSE LIA Lombardi Ot F17.210 NICOTINE DEPENDENCE, CIGARETTES, UNCOMPL 04/14/2016 ROSE LIA Lombardi Ot J44.9 CHRONIC OBSTRUCTIVE PULMONARY DISEASE, U 04/15/2016 MADL, IGOR L MANAGER INTERNET Ot R22.2 LOCALIZED SWELLING, MASS AND LUMP, TRUNK 04/15/2016 MADL, IGOR L MANAGER INTERNET Ot Z53.9 PROCEDURE AND TREATMENT NOT CARRIED OUT, 04/15/2016 Ot R22.2 LOCALIZED SWELLING, MASS AND LUMP, TRUNK 04/15/2016 LONNY GILBERT DO Ot J43.8 OTHER EMPHYSEMA 04/15/2016 LONNY GILBERT DO Ot R91.8 OTHER NONSPECIFIC ABNORMAL FINDING OF IVORY 04/15/2016 LONNY GILBERT DO Ot Z72.0 TOBACCO USE 04/15/2016 LONNY GILBERT DO Ot J43.9 EMPHYSEMA, UNSPECIFIED 04/15/2016 LONNY GILBERT DO Ot R91.8 OTHER NONSPECIFIC ABNORMAL FINDING OF IVORY 04/15/2016 LONNY GILBERT DO Ot Z72.0 TOBACCO USE 04/15/2016 LONNY GILBERT DO Ot J43.9 EMPHYSEMA, UNSPECIFIED 04/15/2016 LONNY GILBERT DO Ot R91.8 OTHER NONSPECIFIC ABNORMAL FINDING OF IVORY 04/15/2016 ROSELIA Ot C37 MALIGNANT NEOPLASM OF [place] 04/15/2016 ROSELIA Ot F17.210 NICOTINE DEPENDENCE, CIGARETTES, UNCOMPL 04/15/2016 ROSELIA Ot J44.9 CHRONIC OBSTRUCTIVE PULMONARY DISEASE, U 04/15/2016 MADL, IGOR L MANAGER INTERNET Ot R22.2 LOCALIZED SWELLING, MASS AND LUMP, TRUNK 04/15/2016 MADL, IGOR L MANAGER INTERNET Ot Z53.9 PROCEDURE AND TREATMENT NOT CARRIED OUT, 04/15/2016 LONNY GILBERT DO Ot J43.8 OTHER EMPHYSEMA 04/15/2016 LONNY GILBERT DO Ot R91.8 OTHER NONSPECIFIC ABNORMAL FINDING OF IVORY 04/15/2016 LONNY GILBERT DO Ot Z72.0 TOBACCO USE 04/15/2016 Ot R22.2 LOCALIZED SWELLING, MASS AND LUMP, TRUNK 04/15/2016 LONNY GILBERT DO Ot J43.9 EMPHYSEMA, UNSPECIFIED 04/15/2016 LONNY GILBERT DO Ot R91.8 OTHER NONSPECIFIC ABNORMAL FINDING OF IVORY 04/15/2016 LONNY GILBERT DO Ot Z72.0 TOBACCO USE 05/14/2016 MADL, IGOR L MANAGER INTERNET Ot R22.2 LOCALIZED SWELLING, MASS AND LUMP, TRUNK 05/14/2016 MADL, IGOR L MANAGER INTERNET Ot Z53.9 PROCEDURE AND TREATMENT NOT CARRIED OUT, 05/14/2016 Ot R22.2 LOCALIZED SWELLING, MASS AND LUMP, TRUNK 05/14/2016 Ot R22.2 LOCALIZED SWELLING, MASS AND LUMP, TRUNK 05/14/2016 LONNY GILBERT DO Ot J43.8 OTHER EMPHYSEMA 05/14/2016 LONNY GILBERT DO Ot R91.8 OTHER NONSPECIFIC ABNORMAL FINDING OF IVORY 05/14/2016 LONNY GILBERT DO Ot Z72.0 TOBACCO USE 05/14/2016 LONNY GILBERT DO Ot J43.8 OTHER EMPHYSEMA 05/14/2016 LONNY GILBERT DO Ot R91.8 OTHER NONSPECIFIC ABNORMAL FINDING OF IVORY 05/14/2016 LONNY GILBERT DO Ot Z72.0 TOBACCO USE 05/14/2016 LONNY GILBERT DO Ot J43.9 EMPHYSEMA, UNSPECIFIED 05/14/2016 LONNY GILBERT DO Ot R91.8 OTHER NONSPECIFIC ABNORMAL FINDING OF IVORY 05/14/2016 LONNY GILBERT DO Ot Z72.0 TOBACCO USE 05/20/2016 MADL, IGOR L MANAGER INTERNET Ot R22.2 LOCALIZED SWELLING, MASS AND LUMP, TRUNK 05/20/2016 MADL, IGOR L MANAGER INTERNET Ot Z53.9 PROCEDURE AND TREATMENT NOT CARRIED OUT, 05/20/2016 Ot R22.2 LOCALIZED SWELLING, MASS AND LUMP, TRUNK 05/20/2016 LONNY GILBERT DO Ot J43.8 OTHER EMPHYSEMA 05/20/2016 LONNY GILBERT DO Ot R91.8 OTHER NONSPECIFIC ABNORMAL FINDING OF IVORY 05/20/2016 LONNY GILBERT DO Ot Z72.0 TOBACCO USE 05/20/2016 LONNY GILBERT DO Ot J43.9 EMPHYSEMA, UNSPECIFIED 05/20/2016 LONNY GILBERT DO Ot R91.8 OTHER NONSPECIFIC ABNORMAL FINDING OF IVORY 05/20/2016 LONNY GILBERT DO Ot Z72.0 TOBACCO USE 05/20/2016 LONNY GILBERT DO Ot J43.9 EMPHYSEMA, UNSPECIFIED 05/20/2016 LONNY GILBERT DO Ot R91.8 OTHER NONSPECIFIC ABNORMAL FINDING OF IVORY 05/20/2016 LIA ROSE Ot C37 MALIGNANT NEOPLASM OF [place] 05/20/2016 LIA ROSE Ot F17.210 NICOTINE DEPENDENCE, CIGARETTES, UNCOMPL 05/20/2016 LIA ROSE Ot J44.9 CHRONIC OBSTRUCTIVE PULMONARY DISEASE, U 05/22/2016 DAYNA DINERO MD Ot F17.210 NICOTINE DEPENDENCE, CIGARETTES, UNCOMPL 05/22/2016 DAYNA DINERO MD Ot I10 ESSENTIAL (PRIMARY) HYPERTENSION 05/22/2016 DAYNA DINERO MD Ot J18.9 PNEUMONIA, UNSPECIFIED ORGANISM 05/22/2016 DAYNA DINERO MD Ot J44.9 CHRONIC OBSTRUCTIVE PULMONARY DISEASE, U 05/22/2016 DAYNA DINERO MD Ot Z23 ENCOUNTER FOR IMMUNIZATION 05/29/2016 ROVERTOL, IGOR L MANAGER INTERNET Ot R22.2 LOCALIZED SWELLING, MASS AND LUMP, TRUNK 05/29/2016 MADL, IGOR L MANAGER INTERNET Ot Z53.9 PROCEDURE AND TREATMENT NOT CARRIED OUT, 05/29/2016 Ot R22.2 LOCALIZED SWELLING, MASS AND LUMP, TRUNK 05/29/2016 LONNY GILBERT DO Ot J43.8 OTHER EMPHYSEMA 05/29/2016 LONNY GILBERT DO Ot R91.8 OTHER NONSPECIFIC ABNORMAL FINDING OF IVORY 05/29/2016 LONNY GILBERT DO Ot Z72.0 TOBACCO USE 05/29/2016 LONNY GILBERT DO Ot J43.9 EMPHYSEMA, UNSPECIFIED 05/29/2016 LONNY GILBERT DO Ot R91.8 OTHER NONSPECIFIC ABNORMAL FINDING OF IVORY 05/29/2016 LONNY GILBERT DO Ot Z72.0 TOBACCO USE 06/24/2016 ROSE LIA Lombardi Ot C37 MALIGNANT NEOPLASM OF [place] 06/24/2016 ROSE LIA Lombardi Ot F17.210 NICOTINE DEPENDENCE, CIGARETTES, UNCOMPL 06/24/2016 LIA ROSE Ot J44.9 CHRONIC OBSTRUCTIVE PULMONARY DISEASE, U 08/11/2016 MADL, IGOR L MANAGER INTERNET Ot R22.2 LOCALIZED SWELLING, MASS AND LUMP, TRUNK 08/11/2016 MADL, IGOR L MANAGER INTERNET Ot Z53.9 PROCEDURE AND TREATMENT NOT CARRIED OUT, 08/11/2016 Ot R22.2 LOCALIZED SWELLING, MASS AND LUMP, TRUNK 08/11/2016 LONNY GILBERT DO Ot J43.8 OTHER EMPHYSEMA 08/11/2016 LONNY GILBERT DO Ot R91.8 OTHER NONSPECIFIC ABNORMAL FINDING OF IVORY 08/11/2016 LONNY GILBERT DO Ot Z72.0 TOBACCO USE 08/11/2016 LONNY GILBERT DO Ot J43.9 EMPHYSEMA, UNSPECIFIED 08/11/2016 LONNY GILBERT DO Ot R91.8 OTHER NONSPECIFIC ABNORMAL FINDING OF IVORY 08/11/2016 LONNY GILBERT DO Ot Z72.0 TOBACCO USE 08/11/2016 LONNY GILBERT DO Ot J43.9 EMPHYSEMA, UNSPECIFIED 08/11/2016 LONNY GILBERT DO Ot R91.8 OTHER NONSPECIFIC ABNORMAL FINDING OF IVORY 08/11/2016 LIA ROSE Ot C37 MALIGNANT NEOPLASM OF [place] 08/11/2016 ROSELIA Ot F17.210 NICOTINE DEPENDENCE, CIGARETTES, UNCOMPL 08/11/2016 LIA ROSE Ot J44.9 CHRONIC OBSTRUCTIVE PULMONARY DISEASE, U 08/12/2016 LIA ROSE Ot D15.0 BENIGN NEOPLASM OF [place] 08/15/2016 ROSELIA Ot C37 MALIGNANT NEOPLASM OF [place] 08/15/2016 ROSELIA Ot F17.210 NICOTINE DEPENDENCE, CIGARETTES, UNCOMPL 08/15/2016 LIA ROSE Ot J44.9 CHRONIC OBSTRUCTIVE PULMONARY DISEASE, U 08/28/2016 LIA ROSE Ot D15.0 BENIGN NEOPLASM OF [place] 09/10/2016 LIA ROSE Ot C37 MALIGNANT NEOPLASM OF [place] 09/10/2016 LIA ROSE Ot F17.210 NICOTINE DEPENDENCE, CIGARETTES, UNCOMPL 09/10/2016 LIA ROSE Ot J44.9 CHRONIC OBSTRUCTIVE PULMONARY DISEASE, U 11/17/2016 LIA ROSE Ot C37 MALIGNANT NEOPLASM OF [place] 11/17/2016 LIA ROSE Ot F17.210 NICOTINE DEPENDENCE, CIGARETTES, UNCOMPL 11/17/2016 LIA ROSE Ot J44.9 CHRONIC OBSTRUCTIVE PULMONARY DISEASE, U 11/18/2016 LIA ROSE Ot C37 MALIGNANT NEOPLASM OF [place] 11/18/2016 LIA ROSE Ot F17.210 NICOTINE DEPENDENCE, CIGARETTES, UNCOMPL 11/18/2016 LIA ROSE Ot J44.9 CHRONIC OBSTRUCTIVE PULMONARY DISEASE, U 11/18/2016 LIA ROSE Ot C37 MALIGNANT NEOPLASM OF [place] 11/18/2016 LIA ROSE Ot F17.210 NICOTINE DEPENDENCE, CIGARETTES, UNCOMPL 11/18/2016 LIA ROSE Ot J44.9 CHRONIC OBSTRUCTIVE PULMONARY DISEASE, U 12/10/2016 LIA ROSE Ot C37 MALIGNANT NEOPLASM OF [place] 12/10/2016 LIA ROSE Ot F17.210 NICOTINE DEPENDENCE, CIGARETTES, UNCOMPL 12/10/2016 LIA ROSE Ot J44.9 CHRONIC OBSTRUCTIVE PULMONARY DISEASE, U 02/10/2017 MADL, IGOR L MANAGER INTERNET Ot R22.2 LOCALIZED SWELLING, MASS AND LUMP, TRUNK 02/10/2017 IDPIKA BARTLETTA L MANAGER INTERNET Ot Z53.9 PROCEDURE AND TREATMENT NOT CARRIED OUT, 02/10/2017 Ot R22.2 LOCALIZED SWELLING, MASS AND LUMP, TRUNK 02/10/2017 LONNY GILBERT DO, Ot J43.8 OTHER EMPHYSEMA 02/10/2017 LONNY GILBERT DO Ot R91.8 OTHER NONSPECIFIC ABNORMAL FINDING OF IVORY 02/10/2017 LONNY GILBERT DO Ot Z72.0 TOBACCO USE 02/10/2017 LONNY GILBERT DO, Ot J43.9 EMPHYSEMA, UNSPECIFIED 02/10/2017 OFELIA DO, LONNY M Ot R91.8 OTHER NONSPECIFIC ABNORMAL FINDING OF IVORY 02/10/2017 LONNY GILBERT DO Ot Z72.0 TOBACCO USE 02/10/2017 LONNY GILBERT DO Ot J43.9 EMPHYSEMA, UNSPECIFIED 02/10/2017 LONNY GILBERT DO Ot R91.8 OTHER NONSPECIFIC ABNORMAL FINDING OF IVORY 02/10/2017 LIA ROSE N Ot D15.0 BENIGN NEOPLASM OF [place] 02/10/2017 LIA ROSE N Ot C37 MALIGNANT NEOPLASM OF [place] 02/10/2017 LIA ROSE N Ot F17.210 NICOTINE DEPENDENCE, CIGARETTES, UNCOMPL 02/10/2017 LIA ROSE N Ot J44.9 CHRONIC OBSTRUCTIVE PULMONARY DISEASE, U 02/10/2017 LIA ROSE N Ot C37 MALIGNANT NEOPLASM OF [place] 02/10/2017 LIA ROSE N Ot F17.210 NICOTINE DEPENDENCE, CIGARETTES, UNCOMPL 02/10/2017 LIA ROSE N Ot J44.9 CHRONIC OBSTRUCTIVE PULMONARY DISEASE, U 02/11/2017 LIA ROSE N Ot I25.10 ATHSCL HEART DISEASE OF [place] CORONARY 02/11/2017 LIA ROSE N Ot K76.0 FATTY (CHANGE OF) LIVER, NOT ELSEWHERE C 02/11/2017 LIA ROSE N Ot R91.8 OTHER NONSPECIFIC ABNORMAL FINDING OF IVORY 02/15/2017 LIA ROSE N Ot C37 MALIGNANT NEOPLASM OF [place] 02/15/2017 LIA ROSE N Ot F17.210 NICOTINE DEPENDENCE, CIGARETTES, UNCOMPL 02/15/2017 LIA ROSE N Ot J44.9 CHRONIC OBSTRUCTIVE PULMONARY DISEASE, U 02/27/2017 LIA ROSE N Ot I25.10 ATHSCL HEART DISEASE OF [place] CORONARY 02/27/2017 LIA ROSE N Ot K76.0 FATTY (CHANGE OF) LIVER, NOT ELSEWHERE C 02/27/2017 LIA ROSE N Ot R91.8 OTHER NONSPECIFIC ABNORMAL FINDING OF IVORY 03/03/2017 LIA ROSE N Ot C37 MALIGNANT NEOPLASM OF [place] 03/03/2017 LIA ROSE N Ot F17.210 NICOTINE DEPENDENCE, CIGARETTES, UNCOMPL 03/03/2017 LIA ROSE N Ot J44.9 CHRONIC OBSTRUCTIVE PULMONARY DISEASE, U 03/11/2017 LIA ROSE Ot C37 MALIGNANT NEOPLASM OF [place] 03/11/2017 LIA ROSE Ot F17.210 NICOTINE DEPENDENCE, CIGARETTES, UNCOMPL 03/11/2017 LIA ROSE Ot J44.9 CHRONIC OBSTRUCTIVE PULMONARY DISEASE, U 04/24/2017 IGOR BARTLETT MANAGER INTERNET Ot R10.11 RIGHT UPPER QUADRANT PAIN 05/17/2017 LIA ROSE Ot C37 MALIGNANT NEOPLASM OF [place] 05/17/2017 LIA ROSE Ot F17.210 NICOTINE DEPENDENCE, CIGARETTES, UNCOMPL 05/17/2017 LIA ROSE Ot J44.9 CHRONIC OBSTRUCTIVE PULMONARY DISEASE, U 07/28/2017 MADLIGOR MANAGER INTERNET Ot I71.4 ABDOMINAL AORTIC ANEURYSM, WITHOUT RUPTU 07/28/2017 IGOR BARTLETT MANAGER INTERNET Ot K76.0 FATTY (CHANGE OF) LIVER, NOT ELSEWHERE C 08/12/2017 EMILY SHERIDAN FACC, ALI FACP CCDS Ot D15.0 BENIGN NEOPLASM OF [place] 08/12/2017 EMILY SHERIDAN FACC, ALI FACP CCDS Ot E66.09 OTHER OBESITY DUE TO EXCESS CALORIES 08/12/2017 EMILY SHERIDAN FACC, ALI FACP CCDS Ot I71.4 ABDOMINAL AORTIC ANEURYSM, WITHOUT RUPTU 08/12/2017 EMILY SHERIDAN FACC, ALI FACP CCDS Ot I73.9 PERIPHERAL VASCULAR DISEASE, UNSPECIFIED 08/12/2017 EMILY SHERIDAN FACC, ALI FACP CCDS Ot J43.8 OTHER EMPHYSEMA 08/12/2017 EMILY SHERIDAN FACC, ALI FACP CCDS Ot R06.02 SHORTNESS OF BREATH 08/12/2017 EMILY SHERIDAN FACC, ALI FACP CCDS Ot R07.89 OTHER CHEST PAIN 08/12/2017 EMILY SHERIDAN FACC, ALI FACP CCDS Ot Z72.0 TOBACCO USE 08/18/2017 EMILY SHERIDAN FACC, ALI FACP CCDS Ot D15.0 BENIGN NEOPLASM OF [place] 08/18/2017 EMILY SHERIDAN FACC, ALI FACP CCDS Ot I71.4 ABDOMINAL AORTIC ANEURYSM, WITHOUT RUPTU 08/18/2017 EMILY SHERIDAN FACC, ALI FACP CCDS Ot I73.9 PERIPHERAL VASCULAR DISEASE, UNSPECIFIED 08/18/2017 EMILY SHERIDAN FACC, ALI FACP CCDS Ot J43.8 OTHER EMPHYSEMA 08/18/2017 EMILY SHARMA, ALI FACP CCDS Ot Z72.0 TOBACCO USE 2017 EMILY SHERIDAN FACC, ALI FACP CCDS Ot D69.6 THROMBOCYTOPENIA, UNSPECIFIED 2017 EMILY SHERIDAN FACC, ALI FACP CCDS Ot E11.9 TYPE 2 DIABETES MELLITUS WITHOUT COMPLIC 2017 EMILY SHERIDAN FACC, ALI FACP CCDS Ot E66.9 OBESITY, UNSPECIFIED 2017 EMILY SHERIDAN FACC, ALI FACP CCDS Ot F17.210 NICOTINE DEPENDENCE, CIGARETTES, UNCOMPL 2017 EMILY SHERIDAN [facility], ALI FACP CCDS Ot I10 ESSENTIAL (PRIMARY) HYPERTENSION 2017 EMILY SHERIDAN FACC, ALI FACP CCDS Ot I25.10 ATHSCL HEART DISEASE OF [place] CORONARY 2017 EMILY SHERIDAN FACC, ALI FACP CCDS Ot I71.4 ABDOMINAL AORTIC ANEURYSM, WITHOUT RUPTU 2017 EMILY SHERIDAN FACC, ALI FACP CCDS Ot J44.9 CHRONIC OBSTRUCTIVE PULMONARY DISEASE, U 2017 EMILY SHARMA, ALI FACP CCDS Ot K76.0 FATTY (CHANGE OF) LIVER, NOT ELSEWHERE C 2017 EMILY SHERIDAN FACC, ALI FACP CCDS Ot R09.02 HYPOXEMIA 2017 EMILY SHARMA, ALI FACP CCDS Ot Z68.31 BODY MASS INDEX (BMI) 31.0-31.9, ADULT 08/31/2017 IGOR BARTLETT MANAGER INTERNET Ot R22.2 LOCALIZED SWELLING, MASS AND LUMP, TRUNK 08/31/2017 IGOR BARTLETT MANAGER INTERNET Ot Z53.9 PROCEDURE AND TREATMENT NOT CARRIED OUT, 08/31/2017 Ot R22.2 LOCALIZED SWELLING, MASS AND LUMP, TRUNK 08/31/2017 LONNY GILBERT DO, Ot J43.8 OTHER EMPHYSEMA 08/31/2017 LONNY GILBERT DO Ot R91.8 OTHER NONSPECIFIC ABNORMAL FINDING OF IVORY 08/31/2017 LONNY GILBERT DO Ot Z72.0 TOBACCO USE 08/31/2017 LONNY GILBERT DO, Ot J43.9 EMPHYSEMA, UNSPECIFIED 08/31/2017 LONNY GILBERT DO Ot R91.8 OTHER NONSPECIFIC ABNORMAL FINDING OF IVORY 08/31/2017 LONNY GILBERT DO Ot Z72.0 TOBACCO USE 08/31/2017 LONNY GILBERT DO Ot J43.9 EMPHYSEMA, UNSPECIFIED 08/31/2017 LONNY GILBERT DO Ot R91.8 OTHER NONSPECIFIC ABNORMAL FINDING OF IVORY 08/31/2017 LIA ROSE Ot D15.0 BENIGN NEOPLASM OF [place] 08/31/2017 LIA ROSE Ot I25.10 ATHSCL HEART DISEASE OF [place] CORONARY 08/31/2017 LIA ROSE Ot K76.0 FATTY (CHANGE OF) LIVER, NOT ELSEWHERE C 08/31/2017 LIA ROSE Ot R91.8 OTHER NONSPECIFIC ABNORMAL FINDING OF IVORY 08/31/2017 LIA ROSE Ot C37 MALIGNANT NEOPLASM OF [place] 08/31/2017 LIA ROSE Ot F17.210 NICOTINE DEPENDENCE, CIGARETTES, UNCOMPL 08/31/2017 LIA ROSE Ot J44.9 CHRONIC OBSTRUCTIVE PULMONARY DISEASE, U 08/31/2017 MADL, IGOR L MANAGER INTERNET Ot R10.11 RIGHT UPPER QUADRANT PAIN 08/31/2017 MADL, IGOR L MANAGER INTERNET Ot I71.4 ABDOMINAL AORTIC ANEURYSM, WITHOUT RUPTU 08/31/2017 MADLIGOR L MANAGER INTERNET Ot K76.0 FATTY (CHANGE OF) LIVER, NOT ELSEWHERE C 08/31/2017 EMILY SHERIDAN FACC, ESTIVEN FACP CCDS Ot D15.0 BENIGN NEOPLASM OF [place] 08/31/2017 EMILY SHERIDAN FACC, ESTIVEN FACP CCDS Ot I71.4 ABDOMINAL AORTIC ANEURYSM, WITHOUT RUPTU 08/31/2017 EMILY SHERIDAN FACC, ALI FACP CCDS Ot I73.9 PERIPHERAL VASCULAR DISEASE, UNSPECIFIED 08/31/2017 EMILY SHERIDAN FACC, ESTIVEN FACP CCDS Ot J43.8 OTHER EMPHYSEMA 08/31/2017 ESTIVEN DIAZ MD, FACC FACP CCDS Ot Z72.0 TOBACCO USE 08/31/2017 EMILY SHERIDAN FACC, ESTIVEN FACP CCDS Ot D15.0 BENIGN NEOPLASM OF [place] 08/31/2017 ESTIVEN DIAZ MD, FACC FACP CCDS Ot E66.09 OTHER OBESITY DUE TO EXCESS CALORIES 08/31/2017 ESTIVEN DIAZ MD, FACC FACP CCDS Ot I71.4 ABDOMINAL AORTIC ANEURYSM, WITHOUT RUPTU 08/31/2017 EMILY SHERIDAN FACC, ESTIVEN FACP CCDS Ot I73.9 PERIPHERAL VASCULAR DISEASE, UNSPECIFIED 08/31/2017 EMILY SHERIDAN FACC, ALI FACP CCDS Ot J43.8 OTHER EMPHYSEMA 08/31/2017 EMILY SHERIDAN FACC, ESTIVEN FACP CCDS Ot R06.02 SHORTNESS OF BREATH 08/31/2017 EMILY SHERIDAN FACC, ALI FACP CCDS Ot R07.89 OTHER CHEST PAIN 08/31/2017 EMILY SHERIDAN FACC, ESTIVEN FACP CCDS Ot Z72.0 TOBACCO USE 09/08/2017 LIA ROSE Ot C37 MALIGNANT NEOPLASM OF [place] 09/08/2017 LIA ROSE Ot F17.210 NICOTINE DEPENDENCE, CIGARETTES, UNCOMPL 09/08/2017 LIA ROSE Ot I25.10 ATHSCL HEART DISEASE OF [place] CORONARY 09/08/2017 LIA ROSE Ot J44.9 CHRONIC OBSTRUCTIVE PULMONARY DISEASE, U 09/08/2017 LIA ROSE Ot K76.0 FATTY (CHANGE OF) LIVER, NOT ELSEWHERE C 09/08/2017 LIA ROSE Ot R91.8 OTHER NONSPECIFIC ABNORMAL FINDING OF [place] 09/08/2017 LIA ROSE Ot 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 09/11/2017 EMILY SHERIDAN FACC, ESTIVEN FACP CCDS Ot D69.6 THROMBOCYTOPENIA, UNSPECIFIED 09/11/2017 EMILY SHERIDAN FACC, ALI FACP CCDS Ot E11.9 TYPE 2 DIABETES MELLITUS WITHOUT COMPLIC 09/11/2017 EMILY SHERIDAN FACC, ALI FACP CCDS Ot E66.9 OBESITY, UNSPECIFIED 09/11/2017 EMILY SHERIDAN FACC, ALI FACP CCDS Ot F17.210 NICOTINE DEPENDENCE, CIGARETTES, UNCOMPL 09/11/2017 EMILY SHERIDAN FACC, ALI FACP CCDS Ot I10 ESSENTIAL (PRIMARY) HYPERTENSION 09/11/2017 EMILY SHERIDAN FACC, ALI FACP CCDS Ot I25.10 ATHSCL HEART DISEASE OF [place] CORONARY 09/11/2017 EMILY SHERIDAN FACC, ALI FACP CCDS Ot I71.4 ABDOMINAL AORTIC ANEURYSM, WITHOUT RUPTU 09/11/2017 EMILY SHERIDAN FACC, ESTIVEN FACP CCDS Ot J44.9 CHRONIC OBSTRUCTIVE PULMONARY DISEASE, U 09/11/2017 EMILY SHERIDAN [facility] Ot K76.0 FATTY (CHANGE OF) LIVER, NOT ELSEWHERE C 09/11/2017 EMILY SHERIDAN [facility], [facility] Ot R09.02 HYPOXEMIA 09/11/2017 EMILY SHERIDAN [facility], [facility] Ot Z68.31 BODY MASS INDEX (BMI) 31.0-31.9, ADULT Procedures There is no data. Results Test Result Range Serum or plasma lactate measurement (moles/volume) - 05/20/16 00:39 Serum or plasma lactate measurement (moles/volume) 2.7 mmol/L 0.5-2.0 Blood lactic acid measurement (moles/volume) - 05/20/16 22:41 Blood lactic acid measurement (moles/volume) 2.4 mmol/L 0.5-2.0 Comprehensive metabolic panel - 05/20/16 22:41 Serum or plasma sodium measurement (moles/volume) 135 mmol/L 135-145 Serum or plasma potassium measurement (moles/volume) 4.2 mmol/L 3.6-5.0 Serum or plasma chloride measurement (moles/volume) 102 mmol/L 98-107 Carbon dioxide 21 mmol/L 21-32 Serum or plasma anion gap determination (moles/volume) 12 mmol/L 5-14 Serum or plasma urea nitrogen measurement (mass/volume) 10 mg/dL 7-18 Serum or plasma creatinine measurement (mass/volume) 1.08 mg/dL 0.60-1.30 Serum or plasma urea nitrogen/creatinine mass ratio 9 NRG Serum or plasma creatinine measurement with calculation of estimated glomerular filtration rate > NRG Serum or plasma glucose measurement (mass/volume) 146 mg/dL 70-105 Serum or plasma calcium measurement (mass/volume) 9.1 mg/dL 8.5-10.1 Serum or plasma total bilirubin measurement (mass/volume) 0.4 mg/dL 0.1-1.0 Serum or plasma alkaline phosphatase measurement (enzymatic activity/volume) 95 U/L 40-136 Serum or plasma aspartate aminotransferase measurement (enzymatic activity/ volume) 30 U/L 5-34 Serum or plasma alanine aminotransferase measurement (enzymatic activity/volume ) 61 U/L 0-55 Serum or plasma protein measurement (mass/volume) 7.2 g/dL 6.4-8.2 Serum or plasma albumin measurement (mass/volume) 4.3 g/dL 3.2-4.5 Blood CBC with ordered manual differential panel - 05/20/16 22:41 Blood leukocytes automated count (number/volume) 13.7 10*3/uL 4.3-11.0 Blood erythrocytes automated count (number/volume) 5.51 10*6/uL 4.35-5.85 Venous blood hemoglobin measurement (mass/volume) 16.3 g/dL 13.3-17.7 Blood hematocrit (volume fraction) 49 % 40-54 Automated erythrocyte mean corpuscular volume 89 [foz_us] 80-99 Automated erythrocyte mean corpuscular hemoglobin (mass per erythrocyte) 30 pg 25-34 Automated erythrocyte mean corpuscular hemoglobin concentration measurement ( mass/volume) 33 g/dL 32-36 Automated erythrocyte distribution width ratio 13.8 % 10.0-14.5 Automated blood platelet count (count/volume) 98 10*3/uL 130-400 Automated blood platelet mean volume measurement TNP 7.4 -10.4 Automated blood neutrophils/100 leukocytes 76 % 42-75 Automated blood lymphocytes/100 leukocytes 16 % 12-44 Blood monocytes/100 leukocytes 1 % NRG Automated blood eosinophils/100 leukocytes 2 % 0-10 Automated blood basophils/100 leukocytes 0 % 0-10 Blood neutrophils automated count (number/volume) 10.3 10*3 1.8-7.8 Blood lymphocytes automated count (number/volume) 2.1 10*3 1.0-4.0 Blood monocytes automated count (number/volume) 1.0 10*3 0.0-1.0 Automated eosinophil count 0.2 10*3/uL 0.0-0.3 Automated blood basophil count (count/volume) 0.0 10*3/uL 0.0-0.1 Manual blood segmented neutrophils/100 leukocytes 73 % NRG Blood band neutrophils/100 leukocytes 0 % NRG Manual blood lymphocytes/100 leukocytes 22 % NRG Manual eosinophils/100 leukocytes in nose 2 % NRG Manual blood basophils/100 leukocytes 0 % NRG Blood lymphocytes variant/100 leukocytes 2 % NRG Blood erythrocyte morphology finding identification NORMAL NRG Bacterial blood culture - 05/20/16 22:41 Bacterial blood culture NG NRG Bacterial blood culture - 05/20/16 22:57 Bacterial blood culture NG NRG Serum or plasma lactate measurement (moles/volume) - 05/21/16 00:39 Serum or plasma lactate measurement (moles/volume) 2.7 mmol/L 0.5-2.0 Complete blood count (CBC) with automated white blood cell (WBC) differential - 05/21/16 04:30 Blood leukocytes automated count (number/volume) 10.9 10*3/uL 4.3-11.0 Blood erythrocytes automated count (number/volume) 4.97 10*6/uL 4.35-5.85 Venous blood hemoglobin measurement (mass/volume) 14.8 g/dL 13.3-17.7 Blood hematocrit (volume fraction) 44 % 40-54 Automated erythrocyte mean corpuscular volume 89 [foz_us] 80-99 Automated erythrocyte mean corpuscular hemoglobin (mass per erythrocyte) 30 pg 25-34 Automated erythrocyte mean corpuscular hemoglobin concentration measurement ( mass/volume) 34 g/dL 32-36 Automated erythrocyte distribution width ratio 13.7 % 10.0-14.5 Automated blood platelet count (count/volume) 84 10*3/uL 130-400 Automated blood platelet mean volume measurement TNP 7.4 -10.4 Automated blood neutrophils/100 leukocytes 88 % 42-75 Automated blood lymphocytes/100 leukocytes 9 % 12-44 Blood monocytes/100 leukocytes 3 % 0-12 Automated blood eosinophils/100 leukocytes 0 % 0-10 Automated blood basophils/100 leukocytes 0 % 0-10 Blood neutrophils automated count (number/volume) 9.6 10*3 1.8-7.8 Blood lymphocytes automated count (number/volume) 0.9 10*3 1.0-4.0 Blood monocytes automated count (number/volume) 0.3 10*3 0.0-1.0 Automated eosinophil count 0.0 10*3/uL 0.0-0.3 Automated blood basophil count (count/volume) 0.0 10*3/uL 0.0-0.1 Comprehensive metabolic panel - 05/21/16 04:30 Serum or plasma sodium measurement (moles/volume) 135 mmol/L 135-145 Serum or plasma potassium measurement (moles/volume) 3.9 mmol/L 3.6-5.0 Serum or plasma chloride measurement (moles/volume) 105 mmol/L 98-107 Carbon dioxide 17 mmol/L 21-32 Serum or plasma anion gap determination (moles/volume) 13 mmol/L 5-14 Serum or plasma urea nitrogen measurement (mass/volume) 11 mg/dL 7-18 Serum or plasma creatinine measurement (mass/volume) 1.08 mg/dL 0.60-1.30 Serum or plasma urea nitrogen/creatinine mass ratio 10 NRG Serum or plasma creatinine measurement with calculation of estimated glomerular filtration rate > NRG Serum or plasma glucose measurement (mass/volume) 251 mg/dL 70-105 Serum or plasma calcium measurement (mass/volume) 8.8 mg/dL 8.5-10.1 Serum or plasma total bilirubin measurement (mass/volume) 0.3 mg/dL 0.1-1.0 Serum or plasma alkaline phosphatase measurement (enzymatic activity/volume) 84 U/L 40-136 Serum or plasma aspartate aminotransferase measurement (enzymatic activity/ volume) 29 U/L 5-34 Serum or plasma alanine aminotransferase measurement (enzymatic activity/volume ) 55 U/L 0-55 Serum or plasma protein measurement (mass/volume) 6.5 g/dL 6.4-8.2 Serum or plasma albumin measurement (mass/volume) 3.9 g/dL 3.2-4.5 Complete blood count (CBC) with automated white blood cell (WBC) differential - 05/22/16 04:20 Blood leukocytes automated count (number/volume) 21.9 10*3/uL 4.3-11.0 Blood erythrocytes automated count (number/volume) 4.52 10*6/uL 4.35-5.85 Venous blood hemoglobin measurement (mass/volume) 13.5 g/dL 13.3-17.7 Blood hematocrit (volume fraction) 40 % 40-54 Automated erythrocyte mean corpuscular volume 89 [foz_us] 80-99 Automated erythrocyte mean corpuscular hemoglobin (mass per erythrocyte) 30 pg 25-34 Automated erythrocyte mean corpuscular hemoglobin concentration measurement ( mass/volume) 33 g/dL 32-36 Automated erythrocyte distribution width ratio 13.8 % 10.0-14.5 Automated blood platelet count (count/volume) 100 10*3/uL 130-400 Automated blood platelet mean volume measurement TNP 7.4 -10.4 Automated blood neutrophils/100 leukocytes 86 % 42-75 Automated blood lymphocytes/100 leukocytes 9 % 12-44 Blood monocytes/100 leukocytes 5 % 0-12 Automated blood eosinophils/100 leukocytes 0 % 0-10 Automated blood basophils/100 leukocytes 0 % 0-10 Blood neutrophils automated count (number/volume) 18.8 10*3 1.8-7.8 Blood lymphocytes automated count (number/volume) 2.0 10*3 1.0-4.0 Blood monocytes automated count (number/volume) 1.0 10*3 0.0-1.0 Automated eosinophil count 0.0 10*3/uL 0.0-0.3 Automated blood basophil count (count/volume) 0.0 10*3/uL 0.0-0.1 Whole blood basic metabolic panel - 05/22/16 04:20 Serum or plasma sodium measurement (moles/volume) 138 mmol/L 135-145 Serum or plasma potassium measurement (moles/volume) 4.9 mmol/L 3.6-5.0 Serum or plasma chloride measurement (moles/volume) 110 mmol/L 98-107 Carbon dioxide 16 mmol/L 21-32 Serum or plasma anion gap determination (moles/volume) 12 mmol/L 5-14 Serum or plasma urea nitrogen measurement (mass/volume) 10 mg/dL 7-18 Serum or plasma creatinine measurement (mass/volume) 0.81 mg/dL 0.60-1.30 Serum or plasma urea nitrogen/creatinine mass ratio 12 NRG Serum or plasma creatinine measurement with calculation of estimated glomerular filtration rate > NRG Serum or plasma glucose measurement (mass/volume) 240 mg/dL 70-105 Serum or plasma calcium measurement (mass/volume) 9.1 mg/dL 8.5-10.1 Blood manual differential performed detection - 05/22/16 04:20 Blood monocytes/100 leukocytes 2 % NRG Manual blood segmented neutrophils/100 leukocytes 84 % NRG Blood band neutrophils/100 leukocytes 6 % NRG Manual blood lymphocytes/100 leukocytes 7 % NRG Manual eosinophils/100 leukocytes in nose 0 % NRG Manual blood basophils/100 leukocytes 0 % NRG Blood lymphocytes variant/100 leukocytes 1 % NRG Blood erythrocyte morphology finding identification NORMAL NRG Blood toxic granules detection by light microscopy 1+ NRG Automated blood complete blood count (hemogram) panel - 08/18/17 07:22 Blood leukocytes automated count (number/volume) 11.4 10*3/uL 4.3-11.0 Blood erythrocytes automated count (number/volume) 5.42 10*6/uL 4.35-5.85 Venous blood hemoglobin measurement (mass/volume) 16.1 g/dL 13.3-17.7 Blood hematocrit (volume fraction) 48 % 40-54 Automated erythrocyte mean corpuscular volume 89 [foz_us] 80-99 Automated erythrocyte mean corpuscular hemoglobin (mass per erythrocyte) 30 pg 25-34 Automated erythrocyte mean corpuscular hemoglobin concentration measurement ( mass/volume) 34 g/dL 32-36 Automated erythrocyte distribution width ratio 12.9 % 10.0-14.5 Automated blood platelet count (count/volume) 94 10*3/uL 130-400 PT panel in platelet poor plasma by coagulation assay - 08/18/17 07:22 Prothrombin time (PT) in platelet poor plasma by coagulation assay 12.4 s 12.2-14.7 INR in platelet poor plasma or blood by coagulation assay 0.9 0.8-1.4 Activated partial thromboplastin time (aPTT) in platelet poor plasma bycoagulation assay - 08/18/17 07:22 Activated partial thromboplastin time (aPTT) in platelet poor plasma bycoagulation assay 29 s 24-35 Comprehensive metabolic panel - 08/18/17 07:22 Serum or plasma sodium measurement (moles/volume) 134 mmol/L 135-145 Serum or plasma potassium measurement (moles/volume) 4.1 mmol/L 3.6-5.0 Serum or plasma chloride measurement (moles/volume) 99 mmol/L 98-107 Carbon dioxide 23 mmol/L 21-32 Serum or plasma anion gap determination (moles/volume) 12 mmol/L 5-14 Serum or plasma urea nitrogen measurement (mass/volume) 12 mg/dL 7-18 Serum or plasma creatinine measurement (mass/volume) 1.02 mg/dL 0.60-1.30 Serum or plasma urea nitrogen/creatinine mass ratio 12 NRG Serum or plasma creatinine measurement with calculation of estimated glomerular filtration rate > NRG Serum or plasma glucose measurement (mass/volume) 345 mg/dL 70-105 Serum or plasma calcium measurement (mass/volume) 9.4 mg/dL 8.5-10.1 Serum or plasma total bilirubin measurement (mass/volume) 0.6 mg/dL 0.1-1.0 Serum or plasma alkaline phosphatase measurement (enzymatic activity/volume) 131 U/L 40-136 Serum or plasma aspartate aminotransferase measurement (enzymatic activity/ volume) 52 U/L 5-34 Serum or plasma alanine aminotransferase measurement (enzymatic activity/volume ) 88 U/L 0-55 Serum or plasma protein measurement (mass/volume) 7.5 g/dL 6.4-8.2 Serum or plasma albumin measurement (mass/volume) 4.3 g/dL 3.2-4.5 Lipid 1996 panel - 08/18/17 07:22 Serum or plasma triglyceride measurement (mass/volume) 341 mg/dL <150 Serum or plasma cholesterol measurement (mass/volume) 243 mg/dL < 200 Serum or plasma cholesterol in HDL measurement (mass/volume) 30 mg/ dL 40-60 Cholesterol in LDL [mass/volume] in serum or plasma by direct assay 170 mg/dL 1-129 Serum or plasma cholesterol in VLDL measurement (mass/volume) 68 mg/ dL 5-40 Methicillin resistant Staphylococcus aureus (MRSA) screening culture - 07:22 Methicillin resistant Staphylococcus aureus (MRSA) screening culture NEG NRG Serum or plasma glucose measurement (mass/volume) - 08/18/17 09:27 Serum or plasma glucose measurement (mass/volume) 252 mg/dL 70-105 Capillary blood glucose measurement by glucometer (mass/volume) - 08/18/17 14: 09 Capillary blood glucose measurement by glucometer (mass/volume) 162 mg/dL 70-110 Capillary blood glucose measurement by glucometer (mass/volume) - 08/18/17 18: 48 Capillary blood glucose measurement by glucometer (mass/volume) 297 mg/dL 70-110 Capillary blood glucose measurement by glucometer (mass/volume) - 08/18/17 20: 16 Capillary blood glucose measurement by glucometer (mass/volume) 295 mg/dL 70-110 Automated blood complete blood count (hemogram) panel - 08/19/17 04:40 Blood leukocytes automated count (number/volume) 9.5 10*3/uL 4.3-11.0 Blood erythrocytes automated count (number/volume) 4.98 10*6/uL 4.35-5.85 Venous blood hemoglobin measurement (mass/volume) 14.9 g/dL 13.3-17.7 Blood hematocrit (volume fraction) 45 % 40-54 Automated erythrocyte mean corpuscular volume 89 [foz_us] 80-99 Automated erythrocyte mean corpuscular hemoglobin (mass per erythrocyte) 30 pg 25-34 Automated erythrocyte mean corpuscular hemoglobin concentration measurement ( mass/volume) 34 g/dL 32-36 Automated erythrocyte distribution width ratio 13.0 % 10.0-14.5 Automated blood platelet count (count/volume) 81 10*3/uL 130-400 Automated blood platelet mean volume measurement TNP 7.4 -10.4 Hemoglobin A1c - 08/19/17 04:40 Hemoglobin A1c 10.5 % 4.5-6.2 Whole blood basic metabolic panel - 08/19/17 04:45 Serum or plasma sodium measurement (moles/volume) 136 mmol/L 135-145 Serum or plasma potassium measurement (moles/volume) 4.1 mmol/L 3.6-5.0 Serum or plasma chloride measurement (moles/volume) 102 mmol/L 98-107 Carbon dioxide 23 mmol/L 21-32 Serum or plasma anion gap determination (moles/volume) 11 mmol/L 5-14 Serum or plasma urea nitrogen measurement (mass/volume) 9 mg/dL 7-18 Serum or plasma creatinine measurement (mass/volume) 0.85 mg/dL 0.60-1.30 Serum or plasma urea nitrogen/creatinine mass ratio 11 NRG Serum or plasma creatinine measurement with calculation of estimated glomerular filtration rate > NRG Serum or plasma glucose measurement (mass/volume) 224 mg/dL 70-105 Serum or plasma calcium measurement (mass/volume) 9.1 mg/dL 8.5-10.1 Encounters ACCT No. Visit Date/Time Discharge Status Pt. Type Provider Facility Loc./Unit Complaint [id number] 09/11/2017 14:00:00 09/11/2017 14:26:00 DIS Outpatient ISAK HENDRIX MD [facility] PREOP COLONOSCOPY [id number] 08/31/2017 09:45:00 08/31/2017 23:59:59 CLS Outpatient LIA ROSE [facility] ONC [id number] 2017 10:00:00 2017 23:59:59 CLS Preadmit ESTIVEN DIAZ MD, FACC, FACP CCDS [facility] CARD CHEST DISCOMFORT [id number] 08/18/2017 06:57:00 2017 11:00:00 DIS Outpatient ESTIVEN DIAZ MD, FACCP CCDS [facility] CATH ANGINA, SOB [id number] 08/04/2017 13:03:00 08/04/2017 23:59:59 CLS Outpatient EMILY SHERIDAN FACCourtney, ALI FACP CCDS [facility] RAD AAA [id number] 07/28/2017 07:08:00 07/28/2017 23:59:59 CLS Outpatient EMILY SHERIDAN FACC, ALI FACP CCDS [facility] CARD CHEST DISCOMFORT [id number] 07/15/2017 08:18:00 07/15/2017 23:59:59 CLS Outpatient MADL, IGOR L MANAGER INTERNET [facility] RAD R10.84 GENERALIZED ABDOMINAL PAIN [id number] 02/16/2017 12:43:00 05/17/2017 00:01:00 DIS Outpatient LIA ROSE N [facility] ONC [id number] 04/10/2017 07:47:00 04/10/2017 23:59:59 CLS Outpatient MADL, IGOR L MANAGER INTERNET [facility] RAD R10.11 [id number] 02/16/2017 00:12:00 02/16/2017 23:59:59 CLS Preadmit LIA ROSE N [facility] ONC [id number] 11/17/2016 13:13:00 02/15/2017 00:01:00 DIS Outpatient LIA ROSE N [facility] ONC [id number] 02/10/2017 10:14:00 02/10/2017 23:59:59 CLS Outpatient ROSE BOBAN N [facility] RAD LUNG MASS [id number] 11/18/2016 00:08:00 11/18/2016 23:59:59 CLS Preadmit LIA ROSE N [facility] ONC [id number] 2016 09:52:00 11/17/2016 00:01:00 DIS Outpatient LIA ROSE N [facility] ONC [id number] 08/11/2016 09:08:00 08/11/2016 23:59:59 CLS Outpatient ROSE, BOBAN N [facility] RAD THYMOMA [id number] 03/26/2016 09:43:00 06/24/2016 00:01:00 DIS Outpatient LIA ROSE [facility] ONC [id number] 05/20/2016 23:45:00 05/22/2016 12:30:00 DIS Inpatient BAR SHERIDAN, DAYNA Watkins [facility] 4TH PNEUMONIA [id number] 02/25/2016 20:30:00 02/27/2016 15:40:00 DIS Inpatient IVAN SHERIDAN, CY Estrada [facility] 4TH ACUTE PNEUMONIA [id number] 02/11/2016 10:50:00 02/11/2016 23:59:59 CLS Outpatient LONNY GILBERT DO [facility] RAD LUNG MASS,COPD [id number] 01/18/2016 14:56:00 01/18/2016 23:59:59 CLS Outpatient LONNY GILBERT DO [facility] RT LUNG MASS,COPD [id number] 01/17/2016 11:38:00 01/17/2016 23:59:59 CLS Outpatient LONNY GILBERT DO [facility] CARD COPD,LUNG MASS [id number] 12/26/2015 07:09:00 12/26/2015 23:59:59 CLS Outpatient IGOR BARTLETTP [facility] RAD LUNG MASS [id number] 12/13/2015 06:32:00 12/13/2015 11:11:00 DIS Emergency CARLOS DAVENPORT MD [facility] ER SOB,HURTS TO COUGH, LEFT SHOULDER SIDE PAIN [id number] 12/11/2015 13:00:00 12/11/2015 23:59:59 CLS Outpatient SOCRATES SALINAS [facility] QUICK [id number] 12/27/2013 13:25:00 12/27/2013 15:29:00 DIS Emergency VALE RUIZ [facility] ER RIGHT HIP/LEG PAIN [id number] 09/17/2017 10:00:00 LINDA HENDRIX MD, ISAK Stallings [facility] ENDO RECTAL BLEEDING [id number] 01/01/2016 13:44:00 Document Registration
[2017-09-17 11:00] VITALS: BP 123/93
[2017-09-17 11:05] VITALS: BP 104/66
--- NOTE | 2017-09-17 11:11 | Endo Procedure Record ---
Endo Procedure Report Date of Procedure Sep 17, 2017 Surgeon (s) ISAK HENDRIX MD Post Procedure/Op Diagnosis Internal hemorrhoids 2 mm polyp at the proximal transverse colon 2 mm polyps 2 at the ascending colon Procedure Performed Colonoscopy to cecum Hot biopsy polypectomy 3 Description of Procedure Anesthesia Type: Conscious Sedation Specimen(s) collected/removed polyps 3 Description of the Procedure indication for the procedure: This gentleman came in for colonoscopy to evaluate rectal bleeding. Informed consent was obtained after reviewing the procedure in detail. Description of the procedure: He was placed in left lateral decubitus position and his vital signs were monitored. Conscious sedation was achieved using Versed and fentanyl. Digital rectal examination was unremarkable. The colonoscope was then introduced into the rectum and advanced all the way up to the cecum. The scope was then withdrawn slowly and the mucosa examined in a systematic fashion. Findings: 1. Internal hemorrhoids, the possible source of his bleeding 2. 2 mm polyp at the proximal transverse colon, that was excised with hot biopsy forceps 3. 2 polyps, 2 mm each, adjacent to each other, at the descending colon. These were excised with hot biopsy forceps as well. He tolerated the procedure well and was taken back to the nursing area in a stable condition. Impression: Rectal bleeding. Internal hemorrhoids and multiple small polyps. Recommend repeating in 2 years Copies To: LIA ROSE Copies To: LILIANA SMALLS MD, XAVIER M MD Sep 17, 2017 11:11 am
--- NOTE | 2017-09-17 11:11 | Discharge Inst-Simple/Standard ---
Discharge Inst-Standard Discharge Medications New, Converted or Re-Newed RX: Other Patient Instructions/Follow Up Plan of Care/Instructions/FU: Repeat colonoscopy in 2 years. Activity as Tolerated: Yes Discharge Diet: No Restrictions ISAK HENDRIX MD Sep 17, 2017 11:11 am
[2017-09-17 11:35] VITALS: BP 120/80
== END | disposition home or self-care (01) ==
LOC: ENDO 08:17
PROVIDERS: ATTEND Surgery
DX: K62.5 Hemorrhage of anus and rectum (principal); D12.3 Benign neoplasm of transverse colon; D12.4 Benign neoplasm of descending colon; K64.8 Other hemorrhoids; C37 Malignant neoplasm of thymus; J43.8 Other emphysema; F17.210 Nicotine dependence, cigarettes, uncomplicated; I25.10 Atherosclerotic heart disease of native coronary artery without angina pectoris; E11.9 Type 2 diabetes mellitus without complications; E78.00 Pure hypercholesterolemia, unspecified; I10 Essential (primary) hypertension; I71.4 Abdominal aortic aneurysm, without rupture; D69.6 Thrombocytopenia, unspecified; R74.0 Nonspecific elevation of levels of transaminase and lactic acid dehydrogenase [LDH]; E66.9 Obesity, unspecified; Z68.31 Body mass index [BMI] 31.0-31.9, adult; Z79.84 Long term (current) use of oral hypoglycemic drugs; Z79.899 Other long term (current) drug therapy; Z95.5 Presence of coronary angioplasty implant and graft; Z99.81 Dependence on supplemental oxygen

== ENCOUNTER 2018-01-08 20:51 | Emergency (ER) | payer MEDICAID ==
[~2018-01-08] VITALS: Ht 185.4 cm; Wt 107.0 kg
[~2018-01-08 20:51] MED LIST changes: -METF500T4 PO; +METF500T5 PO; -MIDAZOLAM 2 MG/2 ML (VERSED) VIAL ONE; -NS IV 500 ML 500 ML IV PRN; -NS IV 500 ML 500 ML ONE; -fentaNYL INJECTION 100 MCG/2 ML AMP ONE
[2018-01-08] MEDS ORDERED: ASPIRIN 81 MG CHEW (CHILDREN'S ASA) PO ONE (21:00)
[2018-01-08 21:10] LABS: BASOPHILS % (AUTO) 0 % (0-10); EOSINOPHILS # (AUTO) 0.4 10^3/uL (0.0-0.3); EOSINOPHILS % (AUTO) 4 % (0-10); HEMATOCRIT 44 % (40-54); HEMOGLOBIN 14.8 G/DL (13.3-17.7); LYMPHOCYTES % (AUTO) 25 % (12-44); MEAN CORPUSCULAR HEMOGLOBIN 30 PG (25-34); MEAN CORPUSCULAR HGB CONC 34 G/DL (32-36); MEAN CORPUSCULAR VOLUME 88 FL (80-99); MEAN PLATELET VOLUME 14.2 FL (7.4-10.4); MONOCYTES # (AUTO) 0.7 X 10^3 (0.0-1.0); MONOCYTES % (AUTO) 6 % (0-12); NEUTROPHILS # (AUTO) 7.8 X 10^3 (1.8-7.8); NEUTROPHILS % (AUTO) 65 % (42-75); PLATELET COUNT 118 10^3/uL (130-400); RED BLOOD COUNT 4.99 10^6/uL (4.35-5.85); RED CELL DISTRIBUTION WIDTH 13.2 % (10.0-14.5)
[2018-01-08] MEDS ORDERED: NITROGLYCERIN 2% OINT 1 GM UNIT DOSE PACKET TOP ONE (21:15)
[2018-01-08 21:20] LABS: INR 0.9 (0.8-1.4); PROTHROMBIN TIME PATIENT 12.2 SEC (12.2-14.7)
--- NOTE | 2018-01-08 21:24 | Diagnostic Imaging Report ---
INDICATION: Chest pain Portable chest 9:17 PM There are postop changes from a median sternotomy. Heart size and pulmonary vascularity are normal. Lungs are clear. There are no effusions or pneumothoraces. IMPRESSION: No acute abnormalities in the chest Dictated by: Dictated on workstation # [id number]
[2018-01-08 21:30] LABS: ALANINE AMINOTRANSFERASE 115 U/L (0-55); ALBUMIN 4.3 GM/DL (3.2-4.5); ALKALINE PHOSPHATASE 102 U/L (40-136); AMYLASE 50 U/L (25-125); BILIRUBIN,TOTAL 0.3 MG/DL (0.1-1.0); BUN/CREATININE RATIO 11; CALCIUM 9.6 MG/DL (8.5-10.1); CARBON DIOXIDE 22 MMOL/L (21-32); CHLORIDE 99 MMOL/L (98-107); CREATINE KINASE 112 U/L (30-200); CREATININE SERUM 1.02 MG/DL (0.60-1.30); GFR ESTIMATED > 60; GLUCOSE 250 MG/DL (70-105); LIPASE 53 U/L (8-78); MAGNESIUM 2.4 MG/DL (1.8-2.4); POTASSIUM 4.3 MMOL/L (3.6-5.0); SODIUM 136 MMOL/L (135-145); TOTAL PROTEIN 7.1 GM/DL (6.4-8.2)
[2018-01-08 21:37] LABS: CREATINE KINASE MB 0.8 NG/ML (<6.6)
[2018-01-08] MEDS ORDERED: KETOROLAC 30 MG/ML VIAL IVP STA (21:44)
[2018-01-08] MEDS ORDERED: RT-ALBUTEROL/IPRATROPIUM 3 ML (DUONEB) VIAL INH ONE (21:45)
[2018-01-08] MEDS ORDERED: IOHEXOL 350 MG/ML 150 ML (OMNIPAQUE 350) VIAL IV ONE (22:15)
[2018-01-08] MEDS ORDERED: NS 250 ML (IVPB) BAG IV ONE (22:15)
[2018-01-08 23:26] VITALS: BP 122/77
--- NOTE | 2018-01-09 02:35 | ED Chest Pain ---
General Chief Complaint: Chest Pain Stated Complaint: CHEST PAIN Nursing Triage Note: c/o chest pain starting this morning. patient denies pain radiating. denies worsening SOA, N/V. denies anything making the pain better or worse Nursing Sepsis Screen: No Definite Risk Source: patient Exam Limitations: other (PT IS LIMTED, VERY VAGUE HISTORIAN) History of Present Illness Date Seen by Provider: Jan 08, 2018 Time Seen by Provider: 20:59 Initial Comments PT ARRIVES VIA POV FROM HOME C/O LEFT SIDED CHEST PAIN SINCE THIS MORNING NOTHING WORSENS OR IMPROVES PAIN RATES PAIN 10/10 PT HAS HAD SWEATS OFF AND ON TODAY NO SWELLING IN LEGS/ FEET OR PAIN IN CALVES NO NAUSEA/VOMITING HAS HAD SOME PALPITATIONS--FELT LIKE HIS HEART WAS BEATING FAST AT TIMES HAS HISTORY OF COPD AND IS ALWAYS SHORT OF BREATH--STATES IT IS NOT ANY WORSE THAN NORMAL TODAY. PT WEARS HOME O2 AT 2L/NC CONTINUOUSLY. LAST USED INHALER A COUPLE OF HOURS AGO. PT CONTINUES TO SMOKE 2 PPD NO COUGH, FEVER , URI SYMPTOMS PT HAS HISTORY OF CAD AND HAS HAD CARDIAC STENTS X 2 PT ALSO HAS HISTORY OF THYMOMA REMOVED IN 2015 PT WAS ON A STATIN, AND WAS DISCONTINUED BY DR. DIAZ ON THURSDAY FOR ELEVATED LIVER ENZYMES LAST SEEN BY DR. DIAZ 3 WEEKS AGO FOR ROUTINE EXAM Allergies and Home Medications Allergies Coded Allergies: No Known Drug Allergies (Unverified , 12/27/13) Home Medications Albuterol Sulfate 8.5 Gm Hfa.aer.ad, 2 PUFF IH Q4H PRN for SHORTNESS OF BREATH, (Reported) Aspirin 325 Mg Tablet., 325 MG PO DAILY, (Reported) Atorvastatin Calcium 40 Mg Tablet, 40 MG PO HS, (Reported) Clopidogrel Bisulfate 75 Mg Tablet, 75 MG PO DAILY, (Reported) Lisinopril 10 Mg Tablet, 10 MG PO DAILY, (Reported) Metformin HCl 500 Mg Tablet, 1,000 MG PO BID, (Reported) take 2 (500mg) tabs Pantoprazole Sodium 40 Mg Tablet., 40 MG PO DAILY, (Reported) Patient Home Medication List Home Medication List Reviewed: Yes Review of Systems Constitutional: see HPI, diaphoresis Respiratory: See HPI, Shortness of Air, SOA With Exertion, SOA at Rest, Wheezing Cardiovascular: See HPI, Chest Pain; Denies Edema; Irregular Heart Rate; Denies Lightheadedness; Palpitations; Denies Syncope Gastrointestinal: No Symptoms Reported Genitourinary: No Symptoms Reported Musculoskeletal: no symptoms reported Skin: no symptoms reported Psychiatric/Neurological: No Symptoms Reported Endocrine: No Symptoms Reported Hematologic/Lymphatic: No Symptoms Reported Past Rweztyn-Ickljf-Xrglyy Hx Patient Social History Alcohol Use: Denies Use Recreational Drug Use: Yes (THC) Drug of Choice: THC Smoking Status: Current Everyday Smoker (2 PPD) Type Used: Cigarettes (2 PPD) Recent Foreign Travel: No Contact w/Someone Who Travel: No Recent Infectious Disease Expo: No Recent Hopitalizations: No Physical Abuse: No Sexual Abuse: No Immunizations Up To Date Tetanus Booster (TDap): Unknown PED Vaccines UTD: Yes Date of Pneumonia Vaccine: Mar 18, 2016 Seasonal Allergies Seasonal Allergies: Yes Past Medical History Surgeries: Yes (REMOVAL OF THYMOMA 01/2016; CARDIAC CATHS--STENTS X 2) Cardiac, Coronary Stent Respiratory: Yes (O2 AT 2L/NC CONTINUOUSLY. STILL SMOKES 2 PPD; 2.9 CM INFRARENAL AAA-ON CT 06/2017) COPD, Emphysema Currently Using CPAP: No Currently Using BIPAP: No Cardiac: Yes (THYMOMA) Aneurysm, Coronary Artery Disease, High Cholesterol, Hypertension Neurological: No Reproductive Disorders: No Sexually Transmitted Disease: No HIV/AIDS: No Gastrointestinal: Yes Musculoskeletal: Yes Chronic Back Pain Endocrine: Yes (THYMOMA REMOVED 2015) Loss of Vision: Denies Hearing Impairment: Denies Cancer: Yes (THYMOMA DX 01/2016--S/P SURGERY , NO CHEMO OR RADIATION) Psychosocial: No Nursing Suicide Risk Score: 0 Integumentary: No Blood Disorders: No Family Medical History AIDS Brain aneurysm 19 MOTHER Cardiovascular disease 19 FATHER FH: COPD (chronic obstructive pulmonary disease) Myocardial infarction 19 FATHER Heart Disease Physical Exam Vital Signs Vital Signs - First Documented 01/08/18 21:00 Temp 98.0 Pulse 111 Resp 24 B/P (MAP) 165/109 (127) Pulse Ox 98 O2 Delivery Nasal Cannula O2 Flow Rate 2.00 Capillary Refill : Less Than 3 Seconds General Appearance: Mild Distress (DYSPNEIC--PT STATES HIS SHORTNESS OF BREATH IS NORMAL FOR HIM), Obese, Other (UNKEMPT, REEKS OF CIGARETTES) HEENT: PERRL/EOMI, Other (EDENTULOUS) Neck: Full Range of Motion, Normal Inspection, Supple; No Carotid Bruit, No JVD Respiratory: Respiratory Distress (MILD TO MODERATE DYSPNEA AT REST, HYPERVENTILATING), Wheezing (EXPIRATORY WHEEZING BILATERALLY) Cardiovascular: No Edema, No Murmur, Tachycardia (MILD) Gastrointestinal: No Pulsatile Mass, Non Tender, Soft Extremity: Normal Capillary Refill, Normal Inspection, Normal Range of Motion, Non Tender, No Calf Tenderness, No Pedal Edema Neurologic/Psychiatric: Alert, Oriented x3, No Motor/Sensory Deficits, Normal Mood/Affect, chair caner II-XII Norm as Tested Skin: Normal Color, Warm/Dry Progress/Results/Core Measures Lab Results Laboratory Tests Test 01/08/18 21:00 Range/Units White Blood Count 12.0 H 4.3-11.0 10^3/uL Red Blood Count 4.99 4.35-5.85 10^6/uL Hemoglobin 14.8 13.3-17.7 G/DL Hematocrit 44 40-54 % Mean Corpuscular Volume 88 80-99 FL Mean Corpuscular Hemoglobin 30 25-34 PG Mean Corpuscular Hemoglobin Concent 34 32-36 G/DL Red Cell Distribution Width 13.2 10.0-14.5 % Platelet Count 118 L 130-400 10^3/uL Mean Platelet Volume 14.2 H 7.4-10.4 FL Neutrophils (%) (Auto) 65 42-75 % Lymphocytes (%) (Auto) 25 12-44 % Monocytes (%) (Auto) 6 0-12 % Eosinophils (%) (Auto) 4 0-10 % Basophils (%) (Auto) 0 0-10 % Neutrophils # (Auto) 7.8 1.8-7.8 X 10^3 Lymphocytes # (Auto) 3.0 1.0-4.0 X 10^3 Monocytes # (Auto) 0.7 0.0-1.0 X 10^3 Eosinophils # (Auto) 0.4 H 0.0-0.3 10^3/uL Basophils # (Auto) 0.0 0.0-0.1 10^3/uL Prothrombin Time 12.2 12.2-14.7 SEC INR Comment 0.9 0.8-1.4 Activated Partial Thromboplast Time 31 24-35 SEC Sodium Level 136 135-145 MMOL/L Potassium Level 4.3 3.6-5.0 MMOL/L Chloride Level 99 98-107 MMOL/L Carbon Dioxide Level 22 21-32 MMOL/L Anion Gap 15 H 5-14 MMOL/L Blood Urea Nitrogen 11 7-18 MG/DL Creatinine 1.02 0.60-1.30 MG/DL Estimat Glomerular Filtration Rate > 60 BUN/Creatinine Ratio 11 Glucose Level 250 H 70-105 MG/DL Calcium Level 9.6 8.5-10.1 MG/DL Magnesium Level 2.4 1.8-2.4 MG/DL Total Bilirubin 0.3 0.1-1.0 MG/DL Aspartate Amino Transf (AST/SGOT) 66 H 5-34 U/L Alanine Aminotransferase (ALT/SGPT) 115 H 0-55 U/L Alkaline Phosphatase 102 40-136 U/L Total Creatine Kinase 112 30-200 U/L Creatine Kinase MB 0.8 <6.6 NG/ML Troponin I < 0.30 <0.30 NG/ML B-Type Natriuretic Peptide 11.7 <100.0 PG/ML Total Protein 7.1 6.4-8.2 GM/DL Albumin 4.3 3.2-4.5 GM/DL Amylase Level 50 25-125 U/L Lipase 53 8-78 U/L My Orders Orders - ART DO DO Amylase (01/08/18 20:58) Cbc With Automated Diff (01/08/18 20:58) Comprehensive Metabolic Panel (01/08/18 20:58) Creatine Kinase (01/08/18 20:58) Creatine Kinase Mb (01/08/18 20:58) Lipase (01/08/18 20:58) Partial Thromboplastin Time (01/08/18 20:58) Protime With Inr (01/08/18 20:58) Troponin I (01/08/18 20:58) Chest 1 View, Ap/Pa Only (01/08/18 20:58) O2 (01/08/18 20:58) Ekg Tracing (01/08/18 20:58) Aspirin Chewable Tablet (Baby Aspirin Ch (01/08/18 21:00) BNP (01/08/18 20:58) Monitor-Rhythm Ecg Trace Only (01/08/18 20:58) Magnesium (01/08/18 20:58) Nitroglycerin Ointment (Nitrobid Ointme (01/08/18 21:15) Ct Angio Chest W (4/13/18 21:44) Ketorolac Injection (Toradol Injection) (01/08/18 21:44) Albuterol/Ipra Inhalation Soln (Duoneb I (01/08/18 21:45) Rt Request For Service (01/08/18 21:44) Svn Sm Volume Nebulizer Rt-Rfs (01/08/18 21:44) Iohexol Injection (Omnipaque 350 Mg/Ml 1 (01/08/18 22:15) Ns (Ivpb) (Sodium Chloride 0.9%) (01/08/18 22:15) Pharmacy Communication (Pharmacy Communi (01/08/18 22:33) Medications Given in ED Current Medications Medications Dose Ordered Sig/Negar Route Start Time Stop Time Status Last Admin Dose Admin Albuterol/ Ipratropium 3 ml ONCE ONCE INH 01/08/18 21:45 01/08/18 21:47 DC 01/08/18 21:59 3 ML Iohexol 150 ml ONCE ONCE IV 01/08/18 22:15 01/08/18 22:16 DC 01/08/18 22:11 125 ML Nitroglycerin 1 inch ONCE ONCE TOP 01/08/18 21:15 01/08/18 21:16 DC 01/08/18 21:16 1 INCH Sodium Chloride 250 ml ONCE ONCE IV 01/08/18 22:15 01/08/18 22:16 DC 01/08/18 22:12 80 ML Vital Signs/I&O 01/08/18 01/08/18 01/08/18 01/08/18 21:00 21:00 21:03 22:12 Temp 98.0 Pulse 111 Resp 24 B/P (MAP) 165/109 (127) Pulse Ox 98 96 97 O2 Delivery Nasal Cannula Nasal Cannula Nasal Cannula O2 Flow Rate 2.00 2.00 2.0 4.00 01/08/18 23:26 Pulse 120 Resp 14 B/P (MAP) 122/77 Pulse Ox 96 Blood Pressure Mean: 127 Progress Note : Progress Note ALMOST PAIN FREE WITH NTG + TORADOL STRONGLY ADVISED PT THAT HE NEEDED TO BE ADMITTED FOR FURTHER EVALUATION, HE HAS MULTIPLE RISK FACTORS FOR CARDIAC ETIOLOGY OF HIS PAIN, AND HE ADAMANTLY REFUSES. AMA PAPERS SIGNED. Initial ECG Impression Date: Jan 08, 2018 Initial ECG Impression Time: 20:53 Initial ECG Rate: 112 Initial ECG Rhythm: S.Tach Comments CXR--NO ACUTE PROCESS, PER RADIOLOGIST REPORT CT CHEST ANGIOGRAM--NO P.E., POST SURGICAL CHANGES, MODERATE BRONCHIAL WALL THICKENING PREDOMINANTLY IN RIGHT LUNG SUGGESTING BRONCHITIS--PER [facility] REPORT VIA FAX @ [id number] Reviewed: Reviewed by Me Departure Impression Primary Impression: Chest pain Additional Impressions: COPD (chronic obstructive pulmonary disease) CAD (coronary artery disease) NIDDM Smoker HTN (hypertension) Hyperlipemia Disposition: 07 AGAINST MEDICAL ADVICE Condition: Against Medical Advice Departure-Patient Inst. Referrals: LILIANA SMALLS MD (PCP) Primary Care Physician IGOR BARTLETT (Family) Primary Care Physician ART DO DO Jan 09, 2018 02:35
--- NOTE | 2018-01-09 06:12 | Diagnostic Imaging Report ---
PROCEDURE: CT angiography of the chest with contrast. TECHNIQUE: Multiple contiguous axial images were obtained through the chest after uneventful bolus administration of intravenous contrast. Reconstructed CTA MIP acquisitions were also performed. Indication: Chest pain, history of stage I thymoma and left lung mass resection. Comparison: 02/10/2017. Discussion: No pulmonary embolus identified. Pulmonary arteries are not dilated. Mild peribronchial wall thickening is present bilaterally. Normal heart size. No pleural or pericardial fluid. No pathologically enlarged lymph nodes identified. Shotty lymph nodes are present within the mediastinum. Median sternotomy is noted. Mild emphysema is present. No focal consolidation or suspicious pulmonary nodule. Scarring is noted within the lingula, likely due to previous surgery. Additional scarring is noted within the right middle lobe. Fatty infiltration of the liver is noted. The upper abdomen is otherwise unremarkable. No osseous abnormality identified. The thoracic aorta is normal in caliber and configuration. Impression: 1. No pulmonary embolus or other acute abnormality identified within the chest. 2. Mild peribronchial wall thickening. 3. Agree with preliminary report. Dictated by: Dictated on workstation # [id number]
--- OUTSIDE RECORDS SUMMARY | 2018-01-10 08:37 | XMS REPORT | Continuity of Care Document ---
Author Author [employer] Organization [facility] Address Unknown Phone Unavailable Care Team Providers Care Sausage Linker Name Role Phone [employer] Unavailable Unavailable Problems Medications Allergies, Adverse Reactions, Alerts Immunizations Results Vital Signs Encounters Procedures Plan of Care Social History Assessment and Plan Family History Advance Directives Functional Status
--- OUTSIDE RECORDS SUMMARY | 2018-01-10 08:38 | XMS REPORT | Clinical Summary ---
Author Author [facility] Organization [facility] Address Unknown Phone Unavailable Care Team Providers Care Correspondent Name Role Phone No Pcp, Na PCP Unavailable Aditi Garcia RN Unavailable Unavailable Jamel Craig MD Unavailable Jovon Shen RN Unavailable Unavailable Source Comments Some departments are not documenting in the electronic medical record. If you do not see the information that you expected, contact Release of Information in the Health Information Management department at [phone] for further assistance in locating additional records.[facility] Allergies No Known Allergies Current Medications Prescription [...] 0.5 Tabs by mouth 30 Tab 3 05/29/20 Active mg tablet twice daily. 16 milk [...] Active Problems Problem Noted Date Malignant thymoma (HCC) 02/28/2016 Tobacco abuse 02/22/2016 Thymoma 02/01/2016 Mediastinal mass 01/24/2016 COPD (chronic obstructive pulmonary disease) ([facility]) Family History Medical History Relation Name Comments [...] PHYSICAL (COMPREHENSIVE) 1980 EXAM PERTUSSIS VACCINE 1984 HIV SCREENING 1988 TETANUS VACCINE 1990 INFLUENZA VACCINE 06/28/2018 Results Not on filefrom Last 3 Months
--- OUTSIDE RECORDS SUMMARY | 2018-01-10 08:40 | XMS REPORT | Continuity of Care Document ---
Author Author [facility] Organization [facility] Address Unknown Phone Unavailable Allergies Active Description Code Type Severity Reaction Onset Reported/Identified Relationship to Patient Clinical Status Yes No Known Drug Allergies [id number] Drug Allergy Unknown N/A 12/27/2013 Medications There [...] Z72.0 TOBACCO USE 02/11/2016 MADL, IGOR L EQUIPMENT MONITOR PHOTOTYPESETTING Ot R22.2 LOCALIZED SWELLING, MASS AND LUMP, TRUNK 02/11/2016 MADL, IGOR L EQUIPMENT MONITOR PHOTOTYPESETTING Ot Z53.9 PROCEDURE AND TREATMENT NOT CARRIED [...] FINDING OF IVORY 02/25/2016 ROVERTOL, IGOR L EQUIPMENT MONITOR PHOTOTYPESETTING Ot R22.2 LOCALIZED SWELLING, MASS AND LUMP, TRUNK 02/25/2016 MADLDIPIKAA L EQUIPMENT MONITOR PHOTOTYPESETTING Ot Z53.9 PROCEDURE AND TREATMENT NOT CARRIED [...] ABNORMAL FINDING OF IVORY 02/26/2016 MADLDIPIKAA L EQUIPMENT MONITOR PHOTOTYPESETTING Ot R22.2 LOCALIZED SWELLING, MASS AND LUMP, TRUNK 02/26/2016 MADLDIPIKAA L EQUIPMENT MONITOR PHOTOTYPESETTING Ot Z53.9 PROCEDURE AND TREATMENT NOT CARRIED [...] Ot R91.8 OTHER NONSPECIFIC ABNORMAL FINDING OF VIORY 02/26/2016 LONNY GILBERT DO Ot Z72.0 TOBACCO [...] Z72.0 TOBACCO USE 02/26/2016 MADL, IGOR L EQUIPMENT MONITOR PHOTOTYPESETTING Ot R22.2 LOCALIZED SWELLING, MASS AND LUMP, TRUNK 02/26/2016 MADL, IGOR L EQUIPMENT MONITOR PHOTOTYPESETTING Ot Z53.9 PROCEDURE AND TREATMENT NOT CARRIED OUT, 02/26/2016 MADL, IGOR L EQUIPMENT MONITOR PHOTOTYPESETTING Ot R22.2 LOCALIZED SWELLING, MASS AND LUMP, TRUNK 02/26/2016 MADL, IGOR L EQUIPMENT MONITOR PHOTOTYPESETTING Ot Z53.9 PROCEDURE AND TREATMENT NOT CARRIED [...] Z72.0 TOBACCO USE 02/26/2016 MADL, IGOR L EQUIPMENT MONITOR PHOTOTYPESETTING Ot R22.2 LOCALIZED SWELLING, MASS AND LUMP, TRUNK 02/26/2016 MADL IGOR L EQUIPMENT MONITOR PHOTOTYPESETTING Ot Z53.9 PROCEDURE AND TREATMENT NOT CARRIED OUT, 02/27/2016 CY LOVE MD Ot B37.0 CANDIDAL STOMATITIS 02/27/2016 CY LOVE MD Ot F17.210 NICOTINE DEPENDENCE, CIGARETTES, UNCOMPL 02/27/2016 CY LOVE MD Ot J44.9 CHRONIC OBSTRUCTIVE PULMONARY DISEASE, U 02/27/2016 CY LOVE MD Ot J81.0 ACUTE PULMONARY EDEMA 02/27/2016 CY LOVE MD Ot J95.89 OT POSTPROC COMPLICATIONS AND DISORDERS 03/26/2016 MADL, IGOR L EQUIPMENT MONITOR PHOTOTYPESETTING Ot R22.2 LOCALIZED SWELLING, MASS AND LUMP, TRUNK 03/26/2016 MADL, IGOR L EQUIPMENT MONITOR PHOTOTYPESETTING Ot Z53.9 PROCEDURE AND TREATMENT NOT CARRIED [...] FINDING OF IVORY 03/27/2016 MADL, IGOR L EQUIPMENT MONITOR PHOTOTYPESETTING Ot R22.2 LOCALIZED SWELLING, MASS AND LUMP, TRUNK 03/27/2016 MADL, IGOR L EQUIPMENT MONITOR PHOTOTYPESETTING Ot Z53.9 PROCEDURE AND TREATMENT NOT CARRIED [...] FINDING OF IVORY 04/01/2016 MADL, IGOR L EQUIPMENT MONITOR PHOTOTYPESETTING Ot R22.2 LOCALIZED SWELLING, MASS AND LUMP, TRUNK 04/01/2016 MADL, IGOR L EQUIPMENT MONITOR PHOTOTYPESETTING Ot Z53.9 PROCEDURE AND TREATMENT NOT CARRIED [...] Z72.0 TOBACCO USE 04/01/2016 MADL, IGOR L EQUIPMENT MONITOR PHOTOTYPESETTING Ot R22.2 LOCALIZED SWELLING, MASS AND LUMP, TRUNK 04/01/2016 MADL, IGOR L EQUIPMENT MONITOR PHOTOTYPESETTING Ot Z53.9 PROCEDURE AND TREATMENT NOT CARRIED OUT, 04/01/2016 Ot R22.2 LOCALIZED SWELLING, MASS AND LUMP, TRUNK 04/01/2016 MADL, IGOR L EQUIPMENT MONITOR PHOTOTYPESETTING Ot R22.2 LOCALIZED SWELLING, MASS AND LUMP, TRUNK 04/01/2016 MADL, IGOR L EQUIPMENT MONITOR PHOTOTYPESETTING Ot Z53.9 PROCEDURE AND TREATMENT NOT CARRIED [...] PULMONARY DISEASE, U 04/15/2016 MADL, IGOR L EQUIPMENT MONITOR PHOTOTYPESETTING Ot R22.2 LOCALIZED SWELLING, MASS AND LUMP, TRUNK 04/15/2016 MADL, IGOR L EQUIPMENT MONITOR PHOTOTYPESETTING Ot Z53.9 PROCEDURE AND TREATMENT NOT CARRIED [...] PULMONARY DISEASE, U 04/15/2016 MADL, IGOR L EQUIPMENT MONITOR PHOTOTYPESETTING Ot R22.2 LOCALIZED SWELLING, MASS AND LUMP, TRUNK 04/15/2016 MADL, IGOR L EQUIPMENT MONITOR PHOTOTYPESETTING Ot Z53.9 PROCEDURE AND TREATMENT NOT CARRIED [...] Z72.0 TOBACCO USE 05/14/2016 MADL, IGOR L EQUIPMENT MONITOR PHOTOTYPESETTING Ot R22.2 LOCALIZED SWELLING, MASS AND LUMP, TRUNK 05/14/2016 MADL, IGOR L EQUIPMENT MONITOR PHOTOTYPESETTING Ot Z53.9 PROCEDURE AND TREATMENT NOT CARRIED [...] Z72.0 TOBACCO USE 05/20/2016 MADL, IGOR L EQUIPMENT MONITOR PHOTOTYPESETTING Ot R22.2 LOCALIZED SWELLING, MASS AND LUMP, TRUNK 05/20/2016 MADL, IGOR L EQUIPMENT MONITOR PHOTOTYPESETTING Ot Z53.9 PROCEDURE AND TREATMENT NOT CARRIED [...] ENCOUNTER FOR IMMUNIZATION 05/29/2016 ROVERTOL, IGOR L EQUIPMENT MONITOR PHOTOTYPESETTING Ot R22.2 LOCALIZED SWELLING, MASS AND LUMP, TRUNK 05/29/2016 MADL, IGOR L EQUIPMENT MONITOR PHOTOTYPESETTING Ot Z53.9 PROCEDURE AND TREATMENT NOT CARRIED [...] PULMONARY DISEASE, U 08/11/2016 MADL, IGOR L EQUIPMENT MONITOR PHOTOTYPESETTING Ot R22.2 LOCALIZED SWELLING, MASS AND LUMP, TRUNK 08/11/2016 MADL, IGOR L EQUIPMENT MONITOR PHOTOTYPESETTING Ot Z53.9 PROCEDURE AND TREATMENT NOT CARRIED OUT, 08/11/2016 Ot R22.2 LOCALIZED SWELLING, MASS AND LUMP, TRUNK 08/11/2016 LONYN GILBERT DO Ot J43.8 OTHER EMPHYSEMA 08/11/2016 [...] NONSPECIFIC ABNORMAL FINDING OF IVORY 08/11/2016 LIA ORSE Ot C37 MALIGNANT NEOPLASM OF [place] 08/11/2016 [...] PULMONARY DISEASE, U 02/10/2017 MADL, IGOR L EQUIPMENT MONITOR PHOTOTYPESETTING Ot R22.2 LOCALIZED SWELLING, MASS AND LUMP, TRUNK 02/10/2017 DIPIKA BARTLETTA L EQUIPMENT MONITOR PHOTOTYPESETTING Ot Z53.9 PROCEDURE AND TREATMENT NOT CARRIED [...] N Ot I25.10 ATHSCL HEART DISEASE OF [place] CORONARY 02/11/2017 LIA ROSE N Ot K76.0 [...] N Ot I25.10 ATHSCL HEART DISEASE OF [place] CORONARY 02/27/2017 LIA ROSE N Ot K76.0 [...] OBSTRUCTIVE PULMONARY DISEASE, U 04/24/2017 IGOR BARTLETT EQUIPMENT MONITOR PHOTOTYPESETTING Ot R10.11 RIGHT UPPER QUADRANT PAIN 05/17/2017 LIA ROSE Ot C37 MALIGNANT NEOPLASM OF [place] 05/17/2017 LIA ROSE Ot F17.210 NICOTINE DEPENDENCE, CIGARETTES, UNCOMPL 05/17/2017 LIA ROSE Ot J44.9 CHRONIC OBSTRUCTIVE PULMONARY DISEASE, U 07/28/2017 MADLIGOR EQUIPMENT MONITOR PHOTOTYPESETTING Ot I71.4 ABDOMINAL AORTIC ANEURYSM, WITHOUT RUPTU 07/28/2017 IGOR BARTLETT EQUIPMENT MONITOR PHOTOTYPESETTING Ot K76.0 FATTY (CHANGE OF) LIVER, NOT [...] NICOTINE DEPENDENCE, CIGARETTES, UNCOMPL 2017 EMILY SHERIDAN [facility], ALI FACP CCDS Ot I10 ESSENTIAL (PRIMARY) HYPERTENSION 2017 EMILY SHERIDAN FACC, ALI FACP CCDS Ot I25.10 ATHSCL HEART DISEASE OF [place] CORONARY 2017 EMILY SHERIDAN FACC, ALI FACP [...] BODY MASS INDEX (BMI) 31.0-31.9, ADULT 08/31/2017 GIOR BARTLETT EQUIPMENT MONITOR PHOTOTYPESETTING Ot R22.2 LOCALIZED SWELLING, MASS AND LUMP, TRUNK 08/31/2017 IGOR BARTLETT EQUIPMENT MONITOR PHOTOTYPESETTING Ot Z53.9 PROCEDURE AND TREATMENT NOT CARRIED [...] ROSE Ot I25.10 ATHSCL HEART DISEASE OF [place] CORONARY 08/31/2017 LIA ROSE Ot K76.0 FATTY (CHANGE OF) LIVER, NOT ELSEWHERE C 08/31/2017 LIA ROSE Ot R91.8 OTHER NONSPECIFIC ABNORMAL FINDING OF IVORY 08/31/2017 LIA ROSE Ot C37 MALIGNANT NEOPLASM OF [place] 08/31/2017 LIA ROSE Ot F17.210 NICOTINE DEPENDENCE, CIGARETTES, UNCOMPL 08/31/2017 LIA ROSE Ot J44.9 CHRONIC OBSTRUCTIVE PULMONARY DISEASE, U 08/31/2017 MADL, IGOR L EQUIPMENT MONITOR PHOTOTYPESETTING Ot R10.11 RIGHT UPPER QUADRANT PAIN 08/31/2017 MADL, IGOR L EQUIPMENT MONITOR PHOTOTYPESETTING Ot I71.4 ABDOMINAL AORTIC ANEURYSM, WITHOUT RUPTU 08/31/2017 MADLIGOR L EQUIPMENT MONITOR PHOTOTYPESETTING Ot K76.0 FATTY (CHANGE OF) LIVER, NOT [...] ROSE Ot I25.10 ATHSCL HEART DISEASE OF [place] CORONARY 09/08/2017 LIA ROSE Ot J44.9 CHRONIC OBSTRUCTIVE PULMONARY DISEASE, U 09/08/2017 LIA ROSE Ot K76.0 FATTY (CHANGE OF) LIVER, NOT ELSEWHERE C 09/08/2017 LIA ROSE Ot R91.8 OTHER NONSPECIFIC ABNORMAL FINDING OF IVORY 09/08/2017 LIA ROSE Ot Z79.899 OTHER PRINTED CIRCUIT BOARD PANELS DEVELOPER (CURRENT) DRUG THERAPY 09/11/2017 EMILY SHERIDAN FACC, [...] CCDS Ot I25.10 ATHSCL HEART DISEASE OF [place] CORONARY 09/11/2017 EMILY SHERIDAN FACC, ALI FACP CCDS Ot I71.4 ABDOMINAL AORTIC ANEURYSM, WITHOUT RUPTU 09/11/2017 EMILY SHERIDAN FACC, ALI FACP CCDS Ot J44.9 CHRONIC OBSTRUCTIVE PULMONARY DISEASE, U 09/11/2017 EMILY [facility] CCD[facility] Ot K76.0 FATTY (CHANGE OF) LIVER, NOT ELSEWHERE C 09/11/2017 EM[facility] CCD[facility] Ot R09.02 HYPOXEMIA 09/11/2017 EM[facility]AN [facility] CCD[facility] Ot Z68.31 BODY MASS INDEX (BMI) 31.0-31.9, ADULT 09/24/2017 ISAK HENDRIX MD Ot C37 MALIGNANT NEOPLASM OF [place] 09/24/2017 ISAK HENDRIX MD Ot D12.3 BENIGN NEOPLASM OF TRANSVERSE COLON 09/24/2017 ISAK HENDRIX MD Ot D12.4 BENIGN NEOPLASM OF DESCENDING COLON 09/24/2017 ISAK HENDRIX MD Ot D69.6 THROMBOCYTOPENIA, UNSPECIFIED 09/24/2017 ISAK HENDRIX MD Ot E11.9 TYPE 2 DIABETES MELLITUS WITHOUT COMPLIC 09/24/2017 ISAK HENDRIX MD Ot E66.9 OBESITY, UNSPECIFIED 09/24/2017 ISAK HENDRIX MD Ot E78.00 PURE HYPERCHOLESTEROLEMIA, UNSPECIFIED 09/24/2017 ISAK HENDRIX MD Ot F17.210 NICOTINE DEPENDENCE, CIGARETTES, UNCOMPL 09/24/2017 ISAK HENDRIX MD Ot I10 ESSENTIAL (PRIMARY) HYPERTENSION 09/24/2017 ISAK HENDRIX MD Ot I25.10 ATHSCL HEART DISEASE OF [place] CORONARY 09/24/2017 ISAK HENDRIX MD Ot I71.4 ABDOMINAL AORTIC ANEURYSM, WITHOUT RUPTU 09/24/2017 ISAK HENDRIX MD Ot J43.8 OTHER EMPHYSEMA 09/24/2017 ISAK HENDRIX MD Ot K62.5 HEMORRHAGE OF ANUS AND RECTUM 09/24/2017 ISAK HENDRIX MD Ot K64.8 OTHER HEMORRHOIDS 09/24/2017 ISAK HENDRIX MD Ot R74.0 NONSPEC ELEV OF LEVELS OF TRANSAMNS [place] 09/24/2017 ISAK HENDRIX MD Ot Z68.31 BODY MASS INDEX (BMI) 31.0-31.9, ADULT 09/24/2017 ISAK HENDRIX MD Ot Z79.84 PRINTED CIRCUIT BOARD PANELS DEVELOPER (CURRENT) USE OF ORAL HYPOGLYC 09/24/2017 ISAK HENDRIX MD, Ot Z79.899 OTHER SKILLED NURSING (CURRENT) DRUG THERAPY 09/24/2017 ISAK HENDRIX MD Ot Z95.5 PRESENCE OF CORONARY ANGIOPLASTY IMPLANT 09/24/2017 ISAK HENDRIX MD Ot Z99.81 DEPENDENCE ON SUPPLEMENTAL OXYGEN 10/06/2017 ISAK HENDRIX MD Ot C37 MALIGNANT NEOPLASM OF [place] 10/06/2017 ISAK HENDRIX MD Ot D12.3 BENIGN NEOPLASM OF TRANSVERSE COLON 10/06/2017 ISAK HENDRIX MD Ot D12.4 BENIGN NEOPLASM OF DESCENDING COLON 10/06/2017 ISAK HENDRIX MD Ot D69.6 THROMBOCYTOPENIA, UNSPECIFIED 10/06/2017 ISAK HENDRIX MD Ot E11.9 TYPE 2 DIABETES MELLITUS WITHOUT COMPLIC 10/06/2017 ISAK HENDRIX MD Ot E66.9 OBESITY, UNSPECIFIED 10/06/2017 ISAK HENDRIX MD Ot E78.00 PURE HYPERCHOLESTEROLEMIA, UNSPECIFIED 10/06/2017 ISAK HENDRIX MD Ot F17.210 NICOTINE DEPENDENCE, CIGARETTES, UNCOMPL 10/06/2017 ISAK HENDRIX MD Ot I10 ESSENTIAL (PRIMARY) HYPERTENSION 10/06/2017 ISAK HENDRIX MD Ot I25.10 ATHSCL HEART DISEASE OF [place] CORONARY 10/06/2017 ISAK HENDRIX MD Ot I71.4 ABDOMINAL AORTIC ANEURYSM, WITHOUT RUPTU 10/06/2017 ISAK HENDRIX MD Ot J43.8 OTHER EMPHYSEMA 10/06/2017 ISAK HENDRIX MD Ot K62.5 HEMORRHAGE OF ANUS AND RECTUM 10/06/2017 ISAK HENDRIX MD Ot K64.8 OTHER HEMORRHOIDS 10/06/2017 ISAK HENDRIX MD Ot R74.0 NONSPEC ELEV OF LEVELS OF TRANSAMNS [place] 10/06/2017 ISAK HENDRIX MD Ot Z68.31 BODY MASS INDEX (BMI) 31.0-31.9, ADULT 10/06/2017 ISAK HENDRIX MD Ot Z79.84 SKILLED NURSING (CURRENT) USE OF ORAL HYPOGLYC 10/06/2017 ISAK HENDRIX MD, Ot Z79.899 OTHER SKILLED NURSING (CURRENT) DRUG THERAPY 10/06/2017 ISAK HENDRIX MD Ot Z95.5 PRESENCE OF CORONARY ANGIOPLASTY IMPLANT 10/06/2017 SIMEON SHERIDAN, ISAK Stallings Ot Z99.81 DEPENDENCE ON SUPPLEMENTAL OXYGEN 10/16/2017 LIA ROSE N Ot C37 MALIGNANT NEOPLASM OF [place] 10/16/2017 LIA RSOE N Ot F17.210 NICOTINE DEPENDENCE, CIGARETTES, UNCOMPL 10/16/2017 LIA ROSE N Ot I25.10 ATHSCL HEART DISEASE OF [place] CORONARY 10/16/2017 LIA ROSE N Ot J44.9 CHRONIC OBSTRUCTIVE PULMONARY DISEASE, U 10/16/2017 LIA ROSE N Ot K76.0 FATTY (CHANGE OF) LIVER, NOT ELSEWHERE C 10/16/2017 LIA ROSE N Ot R91.8 OTHER NONSPECIFIC ABNORMAL FINDING OF IVORY 10/16/2017 LIA ROSE N Ot Z79.899 OTHER SKILLED NURSING (CURRENT) DRUG THERAPY 11/29/2017 LIA ROSE N Ot C37 MALIGNANT NEOPLASM OF [place] 11/29/2017 LIA ROSE N Ot F17.210 NICOTINE DEPENDENCE, CIGARETTES, UNCOMPL 11/29/2017 LIA ROSE N Ot I25.10 ATHSCL HEART DISEASE OF [place] CORONARY 11/29/2017 LIA ROSE N Ot J44.9 CHRONIC OBSTRUCTIVE PULMONARY DISEASE, U 11/29/2017 LIA ROSE N Ot K76.0 FATTY (CHANGE OF) LIVER, NOT ELSEWHERE C 11/29/2017 LIA ROSE N Ot R91.8 OTHER NONSPECIFIC ABNORMAL FINDING OF IVORY 11/29/2017 LIA ROSE N Ot Z79.899 OTHER PRINTED CIRCUIT BOARD PANELS DEVELOPER (CURRENT) DRUG THERAPY 12/01/2017 LIA ROSE N Ot C37 MALIGNANT NEOPLASM OF [place] 12/01/2017 LIA ROSE N Ot F17.210 NICOTINE DEPENDENCE, CIGARETTES, UNCOMPL 12/01/2017 LIA ROSE N Ot I25.10 ATHSCL HEART DISEASE OF [place] CORONARY 12/01/2017 LIA ROSE N Ot J44.9 CHRONIC OBSTRUCTIVE PULMONARY DISEASE, U 12/01/2017 ROSELIA PERALES N Ot K76.0 FATTY (CHANGE OF) LIVER, NOT ELSEWHERE C 12/01/2017 ROSE BOBSUZI N Ot R91.8 OTHER NONSPECIFIC ABNORMAL FINDING OF IVORY 12/01/2017 LIA ROSE N Ot Z79.899 OTHER PRINTED CIRCUIT BOARD PANELS DEVELOPER (CURRENT) DRUG THERAPY Procedures There is no data. Results Test [...] granules detection by light microscopy 1+ NRG Hepatitis Panel (4) - 05/18/17 13:29 HBsAg Screen Negative Negative Hep A Ab, IgM Negative Negative Hep B Core Ab, IgM Negative Negative Hep C Virus Ab <0.1 s/co ratio 0.0-0.9 CBC With Differential/Platelet - 07/08/17 16:27 WBC 12.6 x10E3/uL 3.4-10.8 RBC 5.26 x10E6/uL 4.14-5.80 Hemoglobin 15.6 g/dL 12.6-17.7 Hematocrit 46.8 % 37.5-51.0 MCV 89 fL 79-97 MCH 29.7 pg 26.6-33.0 MCHC 33.3 g/dL 31.5-35.7 RDW 13.4 % 12.3-15.4 Platelets 119 x10E3/uL 150-379 Neutrophils 61 % Not Estab. Lymphs 29 % Not Estab. Monocytes 7 % Not Estab. Eos 3 % Not Estab. Basos 0 % Not Estab. Neutrophils (Absolute) 7.7 x10E3/uL 1.4-7.0 Lymphs (Absolute) 3.7 x10E3/uL 0.7-3.1 Monocytes(Absolute) 0.9 x10E3/uL 0.1-0.9 Eos (Absolute) 0.3 x10E3/uL 0.0-0.4 Baso (Absolute) 0.0 x10E3/uL 0.0-0.2 Immature Granulocytes 0 % Not Estab. Immature Grans (Abs) 0.0 x10E3/uL 0.0-0.1 Hematology Comments: Note: Comp. Metabolic Panel (14) - 07/08/17 16:27 Glucose, Serum 171 mg/dL 65-99 BUN 5 mg/dL 6-24 Creatinine, Serum 0.84 mg/dL 0.76-1.27 eGFR If NonAfricn Am 107 mL/min/1.73 >59 eGFR If Africn Am 124 mL/min/1.73 >59 BUN/Creatinine Ratio 6 9-20 Sodium, Serum 136 mmol/L 134-144 Potassium, Serum 4.1 mmol/L 3.5-5.2 Chloride, Serum 94 mmol/L 96-106 Carbon Dioxide, Total 27 mmol/L 18-29 Calcium, Serum 9.7 mg/dL 8.7-10.2 Protein, Total, Serum 7.1 g/dL 6.0-8.5 Albumin, Serum 4.4 g/dL 3.5-5.5 Globulin, Total 2.7 g/dL 1.5-4.5 A/G Ratio 1.6 1.2-2.2 Bilirubin, Total 0.5 mg/dL 0.0-1.2 Alkaline Phosphatase, S 129 IU/L 39-117 AST (SGOT) 67 IU/L 0-40 ALT (SGPT) 105 IU/L 0-44 CMP - 07/08/17 16:27 Glucose, Serum 171 mg/dL 65-99 BUN 5 mg/dL 6-24 Creatinine, Serum 0.84 mg/dL 0.76-1.27 eGFR If NonAfricn Am 107 mL/min/1.73 >59 eGFR If Africn Am 124 mL/min/1.73 >59 BUN/Creatinine Ratio 6 9-20 Sodium, Serum 136 mmol/L 134-144 Potassium, Serum 4.1 mmol/L 3.5-5.2 Chloride, Serum 94 mmol/L 96-106 Carbon Dioxide, Total 27 mmol/L 18-29 Calcium, Serum 9.7 mg/dL 8.7-10.2 Protein, Total, Serum 7.1 g/dL 6.0-8.5 Albumin, Serum 4.4 g/dL 3.5-5.5 Globulin, Total 2.7 g/dL 1.5-4.5 A/G Ratio 1.6 1.2-2.2 Bilirubin, Total 0.5 mg/dL 0.0-1.2 Alkaline Phosphatase, S 129 IU/L 39-117 AST (SGOT) 67 IU/L 0-40 ALT (SGPT) 105 IU/L 0-44 Automated blood complete blood count (hemogram) panel [...] plasma calcium measurement (mass/volume) 9.1 mg/dL 8.5-10.1 LIPID PANEL - 09/22/17 10:03 CHOLESTEROL, TOTAL 135 mg/dL <200 HDL CHOLESTEROL 23 mg/dL >40 TRIGLYCERIDES 189 mg/dL <150 LDL-CHOLESTEROL 84 mg/dL (calc) NRG CHOL/HDLC RATIO 5.9 (calc) <5.0 NON HDL CHOLESTEROL 112 mg/dL (calc) <130 BILIRUBIN, TOTAL - 12/14/17 10:29 BILIRUBIN, DIRECT 0.1 mg/dL < OR=0.2 Encounters ACCT No. Visit Date/Time Discharge Status Pt. Type Provider Facility Loc./Unit Complaint [id number] 01/08/2018 20:52:00 01/08/2018 23:29:00 DIS Emergency ART DO DO [facility] ER CHEST PAIN [id number] 11/30/2017 00:11:00 11/30/2017 23:59:59 CLS Preadmit LIA ROSE [facility] ONC [id number] 08/31/2017 09:45:00 11/29/2017 00:01:00 DIS Outpatient LIA ROSE [facility] ONC [id number] 09/17/2017 08:17:00 09/17/2017 23:59:59 CLS Outpatient ISAK HENDRIX MD [facility] ENDO RECTAL BLEEDING [id number] 09/11/2017 14:00:00 09/11/2017 14:26:00 DIS Outpatient ISAK HENDRIX MD [facility] PREOP COLONOSCOPY [id number] 2017 10:00:00 2017 23:59:59 CLS Preadmit EMILY SHERIDAN FACC, ESTIVEN POTTS CCDS [facility] CARD CHEST DISCOMFORT [id number] 08/18/2017 06:57:00 2017 11:00:00 DIS Outpatient EMILY SHERIDAN FACCourtney, ALI FACP CCDS [facility] CATH ANGINA, SOB [id number] 08/04/2017 13:03:00 08/04/2017 23:59:59 CLS Outpatient EMILY SHERIDAN FACC, ALI FACP CCDS [facility] RAD AAA [id number] 07/28/2017 07:08:00 07/28/2017 23:59:59 CLS Outpatient EMILY SHERIDAN FACCourtney, ALI FACP CCDS [facility] CARD CHEST DISCOMFORT [id number] 07/15/2017 08:18:00 07/15/2017 23:59:59 CLS Outpatient MADL, IGOR L EQUIPMENT MONITOR PHOTOTYPESETTING [facility] RAD R10.84 GENERALIZED ABDOMINAL PAIN [id number] 02/16/2017 12:43:00 05/17/2017 00:01:00 DIS Outpatient LIA ROSE N [facility] ONC [id number] 04/10/2017 07:47:00 04/10/2017 23:59:59 CLS Outpatient MADL, IGOR L EQUIPMENT MONITOR PHOTOTYPESETTING [facility] RAD R10.11 [id number] 02/16/2017 00:12:00 02/16/2017 23:59:59 CLS Preadmit LIA ROSE N [facility] ONC [id number] 11/17/2016 13:13:00 02/15/2017 00:01:00 DIS Outpatient LIA ROSE N [facility] ONC [id number] 02/10/2017 10:14:00 02/10/2017 23:59:59 CLS Outpatient LIA ROSE N [facility] RAD LUNG MASS [id number] 11/18/2016 00:08:00 11/18/2016 23:59:59 CLS Preadmit LIA ROSE N [facility] ONC [id number] 2016 09:52:00 11/17/2016 00:01:00 DIS Outpatient LIA ROSE N [facility] ONC [id number] 08/11/2016 09:08:00 08/11/2016 23:59:59 CLS Outpatient LIA ROSE [facility] RAD [place] [id number] 03/26/2016 09:43:00 06/24/2016 00:01:00 DIS Outpatient LIA ROSE [facility] ONC [id number] 05/20/2016 23:45:00 05/22/2016 12:30:00 DIS Inpatient BAR SHERIDAN, DAYNA Watkins [facility] 4TH PNEUMONIA [id number] 02/25/2016 20:30:00 02/27/2016 15:40:00 DIS Inpatient IVAN SHERIDAN, CY Estrada [facility] 4TH ACUTE PNEUMONIA [id number] 02/11/2016 10:50:00 02/11/2016 23:59:59 CLS Outpatient LONNY GILBERT DO [facility] RAD LUNG MASS,COPD [id number] 01/18/2016 14:56:00 01/18/2016 23:59:59 CLS Outpatient LONNY GILBERT DO [facility] RT LUNG MASS,COPD [id number] 01/17/2016 11:38:00 01/17/2016 23:59:59 CLS Outpatient LONNY GILBERT DO [facility] CARD COPD,LUNG MASS [id number] 12/26/2015 07:09:00 12/26/2015 23:59:59 CLS Outpatient IGOR BARTLETTP [facility] RAD LUNG MASS [id number] 12/13/2015 06:32:00 12/13/2015 11:11:00 DIS Emergency CARLOS DAVENPORT MD [facility] ER SOB,HURTS TO COUGH, LEFT SHOULDER SIDE PAIN [id number] 12/11/2015 13:00:00 12/11/2015 23:59:59 CLS Outpatient SOCRATES SALINAS [facility] QUICK [id number] 12/27/2013 13:25:00 12/27/2013 15:29:00 DIS Emergency VALE RUIZ [facility] ER RIGHT HIP/LEG PAIN [id number] 01/01/2016 13:44:00 Document Registration [id number] 07/09/2017 15:11:00 Document Registration [id number] 05/19/2017 13:05:00 Document Registration [id number] 12/15/2017 10:00:00 12/15/2017 23:59:59 [facility] Outpatient IGOR BARTLETT APRN [facility] [id number] 12/14/2017 10:20:00 Document Registration [id number] 09/22/2017 10:00:00 Document Registration [id number] 07/08/2017 15:40:00 Document Registration
== END 2018-01-08 23:29 | disposition left against medical advice (07) ==
LOC: EDUNIT# 20:51 → ER 20:52
DX: R07.89 Other chest pain (principal); J44.9 Chronic obstructive pulmonary disease, unspecified; I25.10 Atherosclerotic heart disease of native coronary artery without angina pectoris; E11.9 Type 2 diabetes mellitus without complications; I10 Essential (primary) hypertension; E78.5 Hyperlipidemia, unspecified; F12.90 Cannabis use, unspecified, uncomplicated; F17.210 Nicotine dependence, cigarettes, uncomplicated; Z95.5 Presence of coronary angioplasty implant and graft; Z86.79 Personal history of other diseases of the circulatory system; Z86.018 Personal history of other benign neoplasm; Z79.82 Long term (current) use of aspirin; Z79.84 Long term (current) use of oral hypoglycemic drugs; Z99.81 Dependence on supplemental oxygen; Z98.890 Other specified postprocedural states
CPT/HCPCS: 36415; 71045; 71275; 80053; 82150; 82550; 82553; 83690; 83735; 83880; 84484; 85025; 85610; 85730; 93005; 93041; 94640; 96374

== ENCOUNTER → 2018-02-23 | Outpatient (CLI) | payer MEDICAID ==
[~2018-02-23] MED LIST changes: +IOHEXOL 350 MG/ML 100 ML (OMNIPAQUE 350) VIAL IV ONE; +NS 250 ML (IVPB) BAG IV ONE
--- NOTE | 2018-02-23 12:54 | Diagnostic Imaging Report ---
PROCEDURE: CT chest with contrast only. TECHNIQUE: Multiple contiguous axial images were obtained through the chest after administration of intravenous contrast. INDICATION: Lung mass. COMPARISON: Exam compared to 01/08/2018. FINDINGS: Some minimal subpleural scarring in the lingular segment of the left upper lobe is a chronic finding. Some minimal right-sided andrey-fissural scarring along the minor fissure is stable. No suspicious lung mass. There is heterogeneous air trapping and features likely reflecting of at least mild centrilobular emphysema, chronic. No hilar or mediastinal lymphadenopathy. A few paratracheal and paracarinal nodes are within normal limits and unchanged. Upper abdomen reveals a moderate severity of hepatic steatosis, chronic. No effusion or pneumothorax. Previous sternotomy, healed. No acute chest wall abnormality. IMPRESSION: Stable chronic findings. Dictated by: Dictated on workstation # [id number]
== END ==
LOC: RAD 09:44
PROVIDERS: ATTEND Nurse Practitioner Adult Health
DX: D15.0 Benign neoplasm of thymus (principal); R91.8 Other nonspecific abnormal finding of lung field
CPT/HCPCS: 71260

== ENCOUNTER 2018-03-02 13:12 | Outpatient (RCR) | payer MEDICAID ==
[~2018-03-02 13:12] MED LIST changes: -IOHEXOL 350 MG/ML 100 ML (OMNIPAQUE 350) VIAL IV ONE; +METF-397 PO; -METF500T5 PO; -NS 250 ML (IVPB) BAG IV ONE
== END 2018-05-31 | disposition home or self-care (01) ==
LOC: ONC 13:12
PROVIDERS: ATTEND Internal Medicine Hematology & Oncology
DX: C37 Malignant neoplasm of thymus (principal); J44.9 Chronic obstructive pulmonary disease, unspecified; F17.210 Nicotine dependence, cigarettes, uncomplicated
CPT/HCPCS: 99213

== ENCOUNTER 2018-04-05 14:04 | Outpatient (RCR) | payer MEDICAID | END 2018-04-27 | disposition home or self-care (01) | LOC: PULM 14:04 | PROVIDERS: ATTEND Nurse Practitioner Family | DX: J44.9 Chronic obstructive pulmonary disease, unspecified (principal) ==

== ENCOUNTER → 2018-04-08 | Outpatient (CLI) | payer MEDICAID ==
[~2018-04-08] MED LIST changes: -METF-397 PO; +METF500T5 PO
[2018-04-08 11:04] LABS: ABG BASE EXCESS 2.5 MMOL/L (-2.5-2.5); ABG OXYGEN SATURATION 87 % (94-100); ABG PCO2 39 MMHG (35-45); ABG PH 7.45 (7.37-7.43); ABG PO2 51 MMHG (79-93); ABG TCO2 27.6 MMOL/L (21.0-31.0)
[2018-04-08 11:05] LABS: ALLENS TEST YES-POS; INSPIRED O2 2; PATIENT TEMP 98.1; VENTILATOR NO
== END ==
LOC: RT 10:10
PROVIDERS: ATTEND Nurse Practitioner Family
DX: J43.9 Emphysema, unspecified (principal)
CPT/HCPCS: 36600; 82805

== ENCOUNTER → 2018-04-14 | Outpatient (CLI) | payer MEDICAID ==
[~2018-04-14] MED LIST changes: +RT-ALBUTEROL SULF 2.5 MG/3 ML PRE-MIX VIAL INH ONE; +RT-ALBUTEROL SULF 2.5 MG/3 ML PRE-MIX VIAL ONE
== END ==
LOC: RT 12:57
PROVIDERS: ATTEND Nurse Practitioner Family
DX: J44.9 Chronic obstructive pulmonary disease, unspecified (principal)
CPT/HCPCS: 94060; 94726; 94729

== ENCOUNTER 2018-05-13 21:05 | Outpatient (CLI) | payer MEDICAID ==
[~2018-05-13 21:05] MED LIST changes: -RT-ALBUTEROL SULF 2.5 MG/3 ML PRE-MIX VIAL INH ONE; -RT-ALBUTEROL SULF 2.5 MG/3 ML PRE-MIX VIAL ONE
== END 2018-05-14 06:55 | disposition home or self-care (01) ==
LOC: SLEEP 21:05
PROVIDERS: ATTEND Nurse Practitioner Family
DX: G47.10 Hypersomnia, unspecified (principal); G47.50 Parasomnia, unspecified; E66.9 Obesity, unspecified; R29.818 Other symptoms and signs involving the nervous system
CPT/HCPCS: 95810

== ENCOUNTER → 2018-06-22 | Outpatient (CLI) | payer MEDICAID ==
[~2018-06-22] MED LIST changes: +CATHETER FLUSH 10 ML SYR IV PRN; +METF-397 PO; -METF500T5 PO; +REGADENOSON 0.4 MG/5 ML SYR (LEXISCAN) IV ONE
[2018-06-22 09:22] VITALS: BP 105/70
--- NOTE | 2018-06-23 09:16 | STRESS TEST ---
DATE OF SERVICE: 06/22/2018 RESTING AND POST REGADENOSON TECHNETIUM-99M TETROFOSMIN SPECT CT IMAGING ORDERING PHYSICIAN: Sarah Mccoy APRN. PRIMARY PHYSICIAN: Dr. Rosales. OTHER PHYSICIAN: Oralia Diaz MD, MA, FACP, FACC. CLINICAL DIAGNOSIS: Coronary artery disease. Baseline images were carried out after injection of 10.97 mCi of technetium-99m Tetrofosmin. This was followed by 0.4 mg regadenoson and 29.8 mCi of technetium-99m Tetrofosmin for stress imaging. The electrocardiogram showed sinus rhythm at baseline. It did not change significantly with the regadenoson infusion. Review of images at rest and following stress does not indicate any distinct perfusion defects consistent with significant myocardial ischemia or infarction. Some degree of diaphragmatic attenuation is seen both at rest and following regadenoson infusion. Gated images show normal global left ventricular systolic function with normal regional wall motion, including the diaphragmatic wall of the left ventricle. Left ventricular ejection fraction is calculated to be 84%. Left ventricular end-diastolic volume is 55 mL. TID is absent (0.94). CONCLUSIONS: 1. No evidence of any significant myocardial ischemia or infarction on this study. 2. Normal regional wall motion. 3. Normal to hyperdynamic left ventricular systolic function with a calculated ejection fraction of 84%. Job ID: [id number] DocumentID: [id number] Dictated Date: 06/23/2018 08:38:34 [employer] Date: 06/23/2018 09:16:10 Dictated By: ORALIA DIAZ MD, MA, FACP, FACC, [facility]
== END ==
LOC: CARD 07:27
PROVIDERS: ATTEND Nurse Practitioner Family
DX: I25.10 Atherosclerotic heart disease of native coronary artery without angina pectoris (principal); R07.9 Chest pain, unspecified
CPT/HCPCS: 78452; 93017

== ENCOUNTER → 2018-08-23 | Outpatient (CLI) | payer MEDICAID ==
[~2018-08-23] MED LIST changes: -CATHETER FLUSH 10 ML SYR IV PRN; -REGADENOSON 0.4 MG/5 ML SYR (LEXISCAN) IV ONE
[2018-08-23 09:34] LABS: ABG BASE EXCESS -1.5 MMOL/L (-2.5-2.5); ABG OXYGEN SATURATION 99 % (94-100); ABG PCO2 34 MMHG (35-45); ABG PH 7.43 (7.37-7.43); ABG PO2 131 MMHG (79-93); ABG TCO2 23.5 MMOL/L (21.0-31.0)
[2018-08-23 09:35] LABS: ALLENS TEST YES-POS; INSPIRED O2 3; PATIENT TEMP 96.8; VENTILATOR NO
== END ==
LOC: RT 09:04
PROVIDERS: ATTEND Nurse Practitioner Family
DX: R05 Cough (principal); R06.02 Shortness of breath
CPT/HCPCS: 36600; 82805; 94761

== ENCOUNTER 2018-08-31 12:35 | Outpatient (RCR) | payer MEDICAID ==
[2018-08-31 12:58] LABS: BASOPHILS % (AUTO) 0 % (0-10); EOSINOPHILS # (AUTO) 0.3 10^3/uL (0.0-0.3); EOSINOPHILS % (AUTO) 3 % (0-10); HEMATOCRIT 46 % (40-54); HEMOGLOBIN 14.9 G/DL (13.3-17.7); LYMPHOCYTES # (AUTO) 2.5 X 10^3 (1.0-4.0); LYMPHOCYTES % (AUTO) 28 % (12-44); MEAN CORPUSCULAR HEMOGLOBIN 29 PG (25-34); MEAN CORPUSCULAR HGB CONC 32 G/DL (32-36); MEAN CORPUSCULAR VOLUME 90 FL (80-99); MEAN PLATELET VOLUME 13.6 FL (7.4-10.4); MONOCYTES # (AUTO) 0.6 X 10^3 (0.0-1.0); MONOCYTES % (AUTO) 6 % (0-12); NEUTROPHILS # (AUTO) 5.4 X 10^3 (1.8-7.8); NEUTROPHILS % (AUTO) 62 % (42-75); PLATELET COUNT 119 10^3/uL (130-400); RED CELL DISTRIBUTION WIDTH 14.2 % (10.0-14.5); WHITE BLOOD COUNT 8.8 10^3/uL (4.3-11.0)
[2018-08-31 13:19] LABS: ALANINE AMINOTRANSFERASE 99 U/L (0-55); ALBUMIN 4.4 GM/DL (3.2-4.5); ALKALINE PHOSPHATASE 89 U/L (40-136); BILIRUBIN,TOTAL 0.4 MG/DL (0.1-1.0); BUN/CREATININE RATIO 10; CALCIUM 9.6 MG/DL (8.5-10.1); CARBON DIOXIDE 26 MMOL/L (21-32); CHLORIDE 103 MMOL/L (98-107); CREATININE SERUM 0.81 MG/DL (0.60-1.30); GFR ESTIMATED > 60; GLUCOSE 101 MG/DL (70-105); POTASSIUM 4.3 MMOL/L (3.6-5.0); SODIUM 139 MMOL/L (135-145); TOTAL PROTEIN 7.4 GM/DL (6.4-8.2)
== END 2018-11-29 | disposition home or self-care (01) ==
LOC: ONC 12:35
PROVIDERS: ATTEND Internal Medicine Hematology & Oncology
DX: C37 Malignant neoplasm of thymus (principal); J44.9 Chronic obstructive pulmonary disease, unspecified; F17.210 Nicotine dependence, cigarettes, uncomplicated; Z79.899 Other long term (current) drug therapy
CPT/HCPCS: 36415; 80053; 85025; 99213